=== PATIENT | female | born 1970 | race Caucasian/White ===

== ENCOUNTER 2021-11-29 09:36 | Observation (INO) | payer BC, SELFPAY ==
--- NOTE | ~2021-11-29 | CT_ITS ---
EXAMINATION: CT abdomen pelvis w con DATE: 11/29/2021 11:21 INDICATION: Left flank pain. History of renal stones. TECHNIQUE: Computed tomography (CT) of the abdomen and pelvis was performed without intravenous contr ast. The dose-length product was 371.66 mGy-cm. COMPARISON: CT dated 04/24/2015 FINDINGS: Lung bases are unremarkable. Heart size normal. No significant pleural or pericardial effus ion. There is left perinephric edema with delayed enhancement of the left kidney and mild left hydrou reteronephrosis. There is a 2-3 mm obstructing distal left ureteral stone near the UVJ. There is mild nonspecific periportal edema. The spleen, pancreas, adrenal glands and right kidney are unremarkable. Normal appendix. Nonobstructive bowel gas pattern. There is an IUD present. There is a n involuting corpus luteal cyst of the right ovary measuring 1.9 cm. No lymphadenopathy. No significa nt vascular abnormality. IMPRESSION: 1. Distal right ureteral stone near the UVJ measuring 2-3 mm with associated left hydroureteronephros is, perinephric edema and delayed enhancement of the left kidney. 2: Nonspecific periportal edema. Considerations include hypervolemia, passive hepatic congestion, hep atitis and cholangitis. Reviewed, dictated and finalized at location A. DE PLANT SUPERVISOR IMPRESSION: 1. Distal right ureteral stone near the UVJ measuring 2-3 mm with associated le ft hydroureteronephrosis, perinephric edema and delayed enhancement of the left kidney. 2: Nonspecific periportal edema. Considerations include hypervolemia, passive h epatic congestion, hepatitis and cholangitis.
--- NOTE | ~2021-11-29 | XR_ITS ---
EXAMINATION: XR abdomen/kub 1V DATE: 11/30/2021 06:54 INDICATION: Left ureteral stone TECHNIQUE: A supine view of the abdomen on 2 radiographs was obtained. COMPARISON: CT dated 11/29/2021 FINDINGS: The distal left ureteral stone evident on prior CT is not identified on the current radiographs. Prio r intravenous contrast in the kidneys, renal collecting systems and bladder has resolved. There is a 2 mm density projecting between the right transverse processes of L4 and L5 which is without correlat e on the prior CT with no right-sided urolithiasis or evidence phleboliths suggesting this represents material within the alimentary tract. No dilated bowel to suggest obstruction. IUD in expected posit ion projecting over the central pelvis. IMPRESSION: 1. No evident urolithiasis. Unclear whether this is due to the small size of the stone or due to inte rval passage. 2. IUD in expected position. Reviewed, dictated and finalized at location A. Y RELEASE AND DUPE PRINTER IMPRESSION: 1. No evident urolithiasis. Unclear whether this is due to the small size of th e stone or due to interval passage. 2. IUD in expected position.
--- NOTE | ~2021-11-29 | XR_ITS ---
EXAMINATION: XR abdomen/kub 1V INDICATION: Left flank pain TECHNIQUE: Supine view of the abdomen is obtained. COMPARISON: CT from today FINDINGS: The known left distal ureteral stone is not definitely identified. There is mild left hydro ureteronephrosis which continues to the distal ureter in the expected location of the stone. The micaela l gas pattern is normal. An IUD is noted. IMPRESSION: 1. Mild left hydroureteronephrosis continuing to the left distal ureter to the site of the known ston e identified on CT although stone is not definitely identified. Reviewed, dictated and finalized at location F. RIOR DESIGN TEACHER IMPRESSION: 1. Mild left hydroureteronephrosis continuing to the left distal ureter to the site of the known stone identified on CT although stone is not definitely ident ified.
[2021-11-29 09:38] VITALS: BP 145/87; PULSE 83; RESP 20; TEMP 36.6; O2SAT 100
--- NOTE | 2021-11-29 09:41 | ED.ABDPAIN ---
HPI - Abdominal Pain General Chief Complaint: Abdominal Pain Stated Complaint: kidney stone? Time Seen by Provider: 11/29/21 09:41 Source: patient Mode of arrival: ambulatory Limitations: no limitations History of Present Illness HPI narrative: Patient is a 51-year-old female with a history of nephrolithiasis presenting for evaluation of left flank pain. Patient states that the pain began approximately 4:30 AM this morning, described as sharp, aching pain in the left flank with radiation to the left lower quadrant. No associated fever, chills, but does report dysuria. Denies hematuria. She does report nausea without vomiting. Denies diarrhea. Denies any upper abdominal pain or chest pain. Patient states she has an intermittent history of kidney stones, typically seeks treatment in the emergency department. Patient is unsure who she is followed with from a urology standpoint. She denies any shortness of breath. No cough or rhinorrhea Related Data Home Medications Medication Instructions Recorded Confirmed No Home Medications 11/29/21 11/29/21 Allergies Allergy/AdvReac Type Severity Reaction Status Date / Time house dust Allergy Unknown Unknown Verified 11/29/21 10:03 latex Allergy Unknown Itching Verified 11/29/21 10:03 morphine AdvReac Severe vomiting Verified 11/29/21 10:03 ENVIRONMENTAL ALLERGENS Allergy Severe Unknown Uncoded 11/29/21 10:03 Review of Systems Review of Systems: CONSTITUTIONAL: Denies fever, chills, or sweats. ENT: Denies rhinorrhea, congestion, sore throat, or otalgia. CARDIOVASCULAR: Denies chest pain RESPIRATORY: Denies cough or dyspnea. GASTROINTESTINAL: Reports left lower quadrant abdominal pain, nausea without vomiting, reports left flank pain GENITOURINARY: Reports dysuria without hematuria. SKIN: Denies rash or itching. MUSCULOSKELETAL: Reports left flank pain without arthralgias or other joint pain NEUROLOGIC: Denies headache, numbness, or weakness. [facility] Family History Family History (Updated 07/18/14 @ 07:13 by DOCTOR UNKNOWN) Grandparent Family history of lung cancer Social History Social History (Updated 11/29/21 @ 09:56 by Jenn Belle MD) Smoking status: Current every day smoker Tobacco type: cigarettes Alcohol intake: never Substance use: never Gender identity (if verbalized by the patient): Female Exam Narrative: GENERAL: Awake, alert, uncomfortable appearing, acutely distressed, pacing on the side of the bed HEAD: Normocephalic, atraumatic. EYES: PERRLA and EOMI. ENT: Nares clear, no rhinorrhea or epistaxis. Mucous membranes moist. NECK: Supple. CHEST: No respiratory distress, breathing even and non labored HEART: Regular rate, sinus rhythm ABDOMEN:Non distended, tender in the left lower quadrant, left flank, positive guarding, no rebound EXTREMITIES: Normal range of motion. No edema. SKIN: Warm, dry, no rash. NEURO:No focal deficits. Alert and oriented x3 Course Vital Signs Vital signs: Vital Signs Temperature 36.6 C 11/29/21 09:38 Pulse Rate 83 11/29/21 09:38 Respiratory Rate 20 11/29/21 09:38 Blood Pressure 145/87 H 11/29/21 09:38 Pulse Oximetry 100 11/29/21 09:38 Temperature 36.6 C 11/29/21 09:38 Pulse Rate 52 L 11/29/21 14:12 Respiratory Rate 14 11/29/21 14:12 Blood Pressure 127/75 11/29/21 14:12 Pulse Oximetry 100 11/29/21 14:12 MDM - Abdominal Pain MDM Narrative Medical decision making narrative: Patient presenting for evaluation left flank pain. At the time of assessment, patient is acutely distressed, reporting severe left flank pain. She is uncomfortable appearing. Patient has left flank pain and left lower quadrant pain on exam. Patient was given IV fluids, antiemetic, 3 doses of pain medication without much improvement in her pain. CT scan was obtained and notable for left UVJ stone approximately 2 to 3 mm in size. Urinalysis is not overtly concerning for urinary tract infection, but gi
[2021-11-29] MEDS: SODIUM CHLORIDE 0.9% IV 1,000 ML 999 ML IV CONT (09:56)
[2021-11-29] MEDS: ONDANSETRON INJ 4 MG/2 ML VIAL IV PUSH (09:56)
[2021-11-29 09:57] LABS: Basophils Percent Auto 0.3 % (0.2-1.2); Eosinophils Absolute Auto 0.1 K/mm3 (0-0.3); Eosinophils Percent Auto 0.7 % (0-4.4); Hematocrit 40.3 % (37.0-47.0); Hemoglobin 13.5 g/dL (12.0-15.0); Immature Granulocyte Absolute 0.01 K/mm3 (0.00-0.031); Immature Granulocyte Percent A 0.1 % (0-0.5); Lymphocytes Absolute Auto 0.67 K/mm3 (0.9-3.2); Lymphocytes Percent Auto 9.5 % (18.3-44.2); Mean Corpuscular HGB Conc 33.5 g/dl (32-36); Mean Corpuscular Hemoglobin 31.5 pg (26-34); Mean Corpuscular Volume 94.2 fl (80-100); Mean Platelet Volume 10.5 fl (7.4-10.4); Monocytes Absolute Auto 0.8 K/mm3 (0.1-0.6); Monocytes Percent Auto 11.7 % (2.6-8.5); Neutrophils Absolute Auto 5.5 K/mm3 (1.3-6.7); Neutrophils Percent Auto 77.7 % (45.5-73.1); Platelet Count Result 203 k/mm3 (150-375); Red Blood Count 4.28 M/mm3 (4.2-5.4); Red Cell Distribution Width 13.4 % (11.5-14.5)
[2021-11-29] MEDS: HYDROmorphone HCL INJ (*CRX) 1 MG/ML SYR 0.5 MG IV PUSH (09:57)
[2021-11-29 10:07] LABS: Add Urine Microscopic? YES; Appearance Urine Cloudy (Clear); Bacteria Urine Trace /hpf; Bilirubin Urine Negative (Negative); Blood Urine 2+ (Negative); Color Urine Yellow (Yellow); Glucose Urine UA Negative (Negative); Ketones Urine Negative (Negative); Leukocyte Esterase Ur Negative LEU/UL (Negative); Mucus Urine Rare /lpf; Nitrate Urine Negative (Negative); Protein Urine Negative (Negative); RBC Urine 21-50 /hpf (0-2); Squamous Epithelial Cell Urine Many /hpf (Few)
[2021-11-29 10:20] LABS: Specific Grav Ur 1.032 (1.001-1.035)
[2021-11-29] MEDS: HYDROmorphone HCL INJ (*CRX) 1 MG/ML SYR IV PUSH ×2 (10:41→15:29)
[2021-11-29 10:54] LABS: Alanine Aminotransferase 15 U/L (4-35); Albumin Level 3.7 g/dL (3.5-5.1); Alkaline Phosphatase 46 U/L (38-126); Anion Gap 7 mmol/L (8-16); Aspartate Amino Transferase 22 U/L (14-36); Bilirubin,Total 0.5 mg/dL (0.2-1.3); Blood Urea Nitrogen 16 mg/dL (7-17); Calcium 8.8 mg/dL (8.4-10.2); Carbon Dioxide 24 mmol/L (22-30); Chloride 106 mmol/L (98-107); Estimated CRCL calculation 65 ml/min; Estimated Glomerular Filt Rate > 60; Glucose 100 mg/dL (65-110); Lipase 35 U/L (23-300); Potassium 4.3 mmol/L (3.4-5.0); Sodium 137 mmol/L (137-145)
--- NOTE | 2021-11-29 12:55 | WPDURCON ---
Assessment and Plan Assessment and plan (1) Left ureteral stone: Code(s): N20.1 - Calculus of ureter Status: Acute (2) Hydronephrosis concurrent with and due to calculi of kidney and ureter: Code(s): N13.2 - Hydronephrosis with renal and ureteral calculous obstruction Status: Acute Assessment and Plan: 51 yo female with 2-3 mm left UVJ stone with mild hydro and perinephric stranding. Is requiring IV pain medication. ER MD is starting toradol now. Will admit for pain control and IVF. Will start flomax and strain all urine. ER MD has sent urine culture due to dysuria (though UA looked negative for infection) and started abx. She will be NPO after MN and will get covid swab. If pain persists, we discussed proceeding with cystoscopy, left ureteroscopy with stone extraction and left stent pain tomorrow. I have notified the dye house hand. Urology Consult Note HPI Date Seen: 11/29/21 Primary Care Provider: Cassandra Qureshi, LABOR RELATIONS OFFICER Consult Narrative Narrative: Marie Flores is a 51 year old female being seen at the request of Dr. Belle for left ureteral stone. Pt presented to ER today with sudden onset of left lower back pain radiating to left lower quadrant. Had associated nausea and vomiting. No fevers, chills, or hematuria. Notes some dysuria. Has history of stones, all of which have passed spontaneously. CT in ER showed 2-3 mm L UVJ stone with mild left hydro and perinephric stranding. Nl wbc ct and normal Cr. Pain has persisted despite dilaudid. Review of Systems Review of Systems: All systems reviewed & are unremarkable except as noted in HPI and below (all systems neg other than as her HPI) [facility] Family History Family History (Updated 07/18/14 @ 07:13 by DOCTOR UNKNOWN) Grandparent Family history of lung cancer Social History Social History (Updated 11/29/21 @ 09:56 by Jenn Belle MD) Smoking status: Current every day smoker Tobacco type: cigarettes Alcohol intake: never Substance use: never Gender identity (if verbalized by the patient): Female Meds Home Medications and Allergies Home Medications Medication Instructions Recorded Confirmed Type No Home Medications 11/29/21 11/29/21 History Allergies Allergy/AdvReac Type Severity Reaction Status Date / Time house dust Allergy Unknown Unknown Verified 11/29/21 10:03 latex Allergy Unknown Itching Verified 11/29/21 10:03 morphine AdvReac Severe vomiting Verified 11/29/21 10:03 ENVIRONMENTAL ALLERGENS Allergy Severe Unknown Uncoded 11/29/21 10:03 Vital Signs Vital Signs - 24 hr 11/29/21 09:38 Temperature 36.6 C Pulse Rate 83 Respiratory Rate 20 Blood Pressure 145/87 H Pulse Oximetry 100 Exam Const: General: cooperative and healthy appearing HENMT: Head: normal to inspection Ears: hearing grossly normal bilaterally General nose exam: Normal external nose present Eyes: General: appearance normal, both eyes and all related structures EOM: EOMs intact bilaterally Neck: Neck: normal visual inspection Chest: Chest palpation & inspection: normal inspection of the chest Resp: Effort & Inspection: normal respiratory effort Cardio: Jugular venous distension: no JVD GI: GI Palp: Yes abdominal tenderness (mild LLQ tenderness) and Yes Soft to palpation : General: Yes no CVA tenderness Neuro: General: patient oriented x3 and gait normal Extrem: General: normal to inspection Results Labs CBC & Chem 7: 11/29/21 09:50 11/29/21 10:19 Labs: Short CBC 11/29/21 Range/Units 09:50 WBC 7.0 (4.5-10.0) K/mm3 Hgb 13.5 (12.0-15.0) g/dL Hct 40.3 (37.0-47.0) % Plt Count 203 (150-375) k/mm3 BMP 11/29/21 10:19 Sodium 137 Potassium 4.3 Chloride 106 Carbon Dioxide 24 BUN 16 Creatinine 0.90 Glucose 100 Calcium 8.8 Liver Function 11/29/21 Range/Units 10:19 Total Bilirubin 0.5 (0.2-1.3) mg/dL AST
[2021-11-29] MEDS: METOCLOPRAMIDE HCL INJ 10 MG/2 ML VIAL IV PUSH (13:06)
[2021-11-29] MEDS: KETOROLAC 15 MG/ML VIAL (*BKC) IV PUSH (13:07)
[2021-11-29] MEDS: TAMSULOSIN HCL 0.4 MG CAPSULE PO (13:38)
[2021-11-29 13:57] LABS: SARS-CoV-2 RNA PCR Negative
[2021-11-29 14:12] VITALS: BP 127/75; PULSE 52; RESP 14; O2SAT 100
[2021-11-29] MEDS: SODIUM CHLORIDE 0.9% IV 1,000 ML 125 ML IV CONT ×2 (14:55→20:41)
--- NOTE | 2021-11-29 15:00 | PM.IMHP ---
H&P: HPI History of Present Illness Date/Time: 11/29/21 15:00 Chief Complaint: Left flank pain. Narrative: This is a 51-year-old female with history of kidney stones presented to the emergency department earlier today for evaluation of left flank pain. She was wakened from sleep at about 04:30 with sharp and aching pain in the left flank radiating to the left lower quadrant with the addition to nausea, vomiting, and dysuria. Initially she thought perhaps she was constipated so she took a Dulcolax but she also drank quite a bit of cranberry juice thinking that maybe she was developing a UTI. Unfortunately her symptoms did not improve and because they are similar to those she experienced with previous kidney stones, she decided to come in for evaluation. A CT of the abdomen and pelvis showed a distal right ureteral stone near the UVJ measuring 2-3 mm with left hydroureteronephrosis and she is being admitted in this setting for pain control overnight and urology consultation. At the time my evaluation she is comfortable after receiving pain medication. She denies fever and she has no further episodes of emesis. Review of Systems Review of Systems: Twelve systems were reviewed. No recent cold or flu symptoms. No cough or shortness of breath. No hematuria. Except as documented, all other systems were reviewed and are negative. [facility] Past Medical History Medical History Nephrolithiasis Tobacco use Surgical History Surgical History (Updated 11/29/21 @ 15:25 by Jennifer Pineda PA-C) History of right breast biopsy (02/2011) For microcalcifications. Pathology benign. Family History Family History Grandparent Family history of lung cancer Social History Social History (Updated 11/29/21 @ 23:09 by Jennifer Pineda PA-C) Social History: Surrogate decision maker: Augustina Sandovalhernando, mother. Code status: Full code. Smoking status: Current some day smoker Tobacco type: cigarettes Alcohol intake: never Substance use: current Substance use type: marijuana Last use: 11/21/21 Additional living arrangements comments: Lives in [place]. Additional occupation/education comments: Works for [employer]. Meds Home Medications and Allergies Home Medications Medication Instructions Recorded Confirmed Type No Home Medications 11/29/21 11/29/21 History Allergies Allergy/AdvReac Type Severity Reaction Status Date / Time house dust Allergy Unknown Unknown Verified 11/29/21 10:03 latex Allergy Unknown Itching Verified 11/29/21 10:03 morphine AdvReac Severe vomiting Verified 11/29/21 10:03 ENVIRONMENTAL ALLERGENS Allergy Severe Unknown Uncoded 11/29/21 10:03 Vital Signs Vital Signs - 24 hr 11/29/21 09:38 11/29/21 14:12 Temperature 97.9 F Pulse Rate 83 52 L Respiratory Rate 20 14 Blood Pressure 145/87 H 127/75 Pulse Oximetry 100 100 Exam Narrative: General: Well-developed female supine in bed. Weight: 70.3 kg. BMI: 27.9. HEENT: PERRL, EOMI. Sclerae anicteric. Oral mucosa moist. Neck: Supple. Respiratory: Lungs are clear to auscultation bilaterally. Cardiovascular: Regular rate and rhythm with S1-S2. No murmur, rub, or gallop. Gastrointestinal: Abdomen is soft and nondistended with positive bowel sounds. She is tender to palpation in the left flank and left lower quadrant. No guarding or rebound tenderness. Skin: Warm and dry. No rash or lesions on limited exam. Extremities: No cyanosis, clubbing, or edema. Radial and pedal pulses intact. Neurological: Alert. Cranial nerves 2-12 are grossly intact. No gross focal deficits to casual conversation. Psychiatric: Pleasant and cooperative with normal mood and affect. Judgment and insight intact. H&P: Results Labs Labs: Short CBC 11/29/21 Range/Units 09:50 WBC 7.0 (4.5-10.0) K/mm3 Hgb 13.5 (12.0-15.0) g/dL Hct 40.3 (37.0-47.0) % Plt Count 203
[2021-11-29 15:15] VITALS: BP 137/81; PULSE 50; RESP 18; TEMP 36.2; O2SAT 99; BMI 27.8
--- NOTE | 2021-11-29 15:46 | ADMGEN ---
This patient, Marie Flores, was admitted to Medical Room 257-01. Patient/family oriented to hospital policies and general routines including ID bracelet, bed and alarms, visiting hours, pain management, procedures, bathroom and other care routines, personal items, smoking policy, room service/diet, and visiting hours. Information on how to activate the Rapid Response Team has been discussed. Patient/Family are encouraged to report perceived risks to care and to ask questions if they do not understand what they are told or what they should do.
[2021-11-29] MEDS: FAMOTIDINE 20 MG/2 ML VIAL IV PUSH (20:41)
[2021-11-29 22:00] VITALS: BP 104/58; PULSE 55; RESP 21; TEMP 36.1; O2SAT 100
[2021-11-30] MEDS: SODIUM CHLORIDE 0.9% IV 1,000 ML 125 ML IV CONT (00:58)
[2021-11-30 06:00] VITALS: BP 112/56; PULSE 51; RESP 20; TEMP 36.1; O2SAT 99
[2021-11-30 06:04] LABS: Basophils Percent Auto 0.2 % (0.2-1.2); Eosinophils Absolute Auto 0.1 K/mm3 (0-0.3); Eosinophils Percent Auto 1.4 % (0-4.4); Hematocrit 34.9 % (37.0-47.0); Hemoglobin 11.5 g/dL (12.0-15.0); Immature Granulocyte Absolute 0.02 K/mm3 (0.00-0.031); Immature Granulocyte Percent A 0.4 % (0-0.5); Lymphocytes Absolute Auto 1.34 K/mm3 (0.9-3.2); Lymphocytes Percent Auto 26.2 % (18.3-44.2); Mean Corpuscular Hemoglobin 31.1 pg (26-34); Mean Corpuscular Volume 94.3 fl (80-100); Mean Platelet Volume 10.8 fl (7.4-10.4); Monocytes Absolute Auto 0.7 K/mm3 (0.1-0.6); Monocytes Percent Auto 13.3 % (2.6-8.5); Neutrophils Percent Auto 58.5 % (45.5-73.1); Platelet Count Result 136 k/mm3 (150-375); Red Cell Distribution Width 13.3 % (11.5-14.5); White Blood Count 5.1 K/mm3 (4.5-10.0)
[2021-11-30 06:19] LABS: Alanine Aminotransferase 18 U/L (4-35); Albumin Level 3.1 g/dL (3.5-5.1); Alkaline Phosphatase 41 U/L (38-126); Anion Gap 4 mmol/L (8-16); Aspartate Amino Transferase 28 U/L (14-36); Bilirubin,Total 0.3 mg/dL (0.2-1.3); Blood Urea Nitrogen 14 mg/dL (7-17); Calcium 8.1 mg/dL (8.4-10.2); Carbon Dioxide 23 mmol/L (22-30); Chloride 112 mmol/L (98-107); Estimated CRCL calculation 78 ml/min; Estimated Glomerular Filt Rate > 60; Glucose 101 mg/dL (65-110); Magnesium 1.8 mg/dL (1.6-2.3); Potassium 4.2 mmol/L (3.4-5.0); Sodium 139 mmol/L (137-145)
--- NOTE | 2021-11-30 06:35 | WPDUROPN2 ---
Progress Note: A&P Assessment and Plan (1) Left ureteral stone: Code(s): N20.1 - Calculus of ureter Status: Acute (2) Hydronephrosis concurrent with and due to calculi of kidney and ureter: Code(s): N13.2 - Hydronephrosis with renal and ureteral calculous obstruction Status: Acute Assessment and Plan: 51 yo female with 2-3 mm left UVJ stone with mild hydro and perinephric stranding. Is requiring IV pain medication. ER MD is starting toradol now. Will admit for pain control and IVF. Will start flomax and strain all urine. ER MD has sent urine culture due to dysuria (though UA looked negative for infection) and started abx. She will be NPO after MN and will get covid swab. If pain persists, we discussed proceeding with cystoscopy, left ureteroscopy with stone extraction and left stent pain tomorrow. I have notified the fraternity house cook. 11/30/21 Pain-free overnight. Will check KUB and make decision about need for intervention. Subjective Subjective Date/Time Seen: 11/30/21 06:35 Comfortable, no stone overnight Review of Systems Cardiovascular: Cardiovascular: Denies chest pain, Denies lightheadedness, Denies palpitations and Denies dyspnea Respiratory: Respiratory: Denies dyspnea Gastrointestinal: Gastrointestinal: Denies diarrhea, Denies nausea and Denies vomiting Genitourinary: Genitourinary: Denies hematuria and Denies dysuria Endocrine: Endocrine: Denies palpitations Exam Const: General: no acute distress Resp: Effort & Inspection: normal respiratory effort GI: Inspection: non-distended GI Palp: No abdominal tenderness and No Guarding due to palpation present (GI) Auscultation: normal bowel sounds Objective Data Vital Signs Vital Signs: Vital Signs - 24 hr 11/29/21 09:38 11/29/21 14:12 11/29/21 15:15 Temperature 97.9 F 97.2 F L Pulse Rate 83 52 L 50 L Respiratory Rate 20 14 18 Blood Pressure 145/87 H 127/75 137/81 Pulse Oximetry 100 100 99 11/29/21 22:00 11/30/21 06:00 Temperature 97.0 F L 97.0 F L Pulse Rate 55 L 51 L Respiratory Rate 21 H 20 Blood Pressure 104/58 L 112/56 L Pulse Oximetry 100 99 Intake/Output Intake/Output: Intake & Output 11/27/21 11/28/21 11/29/21 11/30/21 23:59 23:59 23:59 23:59 Intake Total 2150 1000 Output Total 50 900 Balance 2100 100 Meds/Results Medications: Active Medications Generic Name Dose Route Start Last Admin Trade Name Freq PRN Reason Stop Dose Admin Famotidine 20 mg 11/29/21 21:00 11/29/21 20:41 Famotidine 20 Mg/2 Ml Vial IV PUSH 20 mg Q12HR TONYA Administration Hydromorphone HCl 1 mg 11/29/21 13:26 11/29/21 15:29 Hydromorphone Hcl Inj (*Crx) 1 Mg/Ml Syr IV PUSH 1 mg Q4H PRN Administration Pain Rated 7-10 Acetaminophen 1,000 mg in 100 mls @ 400 mls/hr 11/29/21 13:26 Ofirmev 1,000 Mg Ivpb IVPB 11/30/21 13:25 Q6H PRN Mild Pain (1-3) or Fever Sodium Chloride 1,000 mls @ 125 mls/hr 11/29/21 13:30 11/30/21 00:58 Normal Saline Iv IV CONT 125 mls/hr .Q8H TONYA Administration Ceftriaxone Sodium/Dextrose 1 gm in 50 mls @ 100 mls/hr 11/30/21 12:00 Rocephin 1 Gm/D5w 50 Ml IVPB Q24H TONYA Ketorolac Tromethamine 30 mg 11/29/21 13:26 Ketorolac 30 Mg/Ml Vial (*Bkc) IV PUSH 12/04/21 13:25 Q6H PRN Pain Rated 4-6 Ondansetron HCl 4 mg 11/29/21 13:26 Ondansetron Inj 4 Mg/2 Ml Vial IV PUSH Q4H PRN Nausea Tamsulosin HCl 0.4 mg 11/30/21 09:00 Tamsulosin Hcl 0.4 Mg Capsule [facility] [place] [facility] Results: ITS Impressions Abdomen/Pelvis CT 11/29/21 11:24 IMPRESSION: 1. Distal right ureteral stone near the UVJ measuring 2-3 mm with associated left hydroureteronephrosis, perinephric edema and delayed enhancement of the left kidney. 2: Nonspecific periportal edema. Considerations include hypervolemia, passive hepatic congestion, hepatitis and cholangitis. Abdomen X-Ray 11/29/21 15:08 IMPRESSION:
[2021-11-30] MEDS: TAMSULOSIN HCL 0.4 MG CAPSULE PO (08:27)
--- NOTE | 2021-11-30 12:29 | PM.DS ---
DS: Admitting Diagnosis Discharge Date 11/30/2021 Admitting Diagnosis Left ureteral stone DS: Discharge Diagnosis Discharge Diagnosis (1) Left ureteral stone: Code(s): N20.1 - Calculus of ureter Status: Acute Assessment and Plan: IV pain control IVF Flomax and strain all urine. UA not suggestive for infecition IV antibiotics Pain resolved No plan to proceed with cystoscopy D/c home (2) Hydronephrosis concurrent with and due to calculi of kidney and ureter: Code(s): N13.2 - Hydronephrosis with renal and ureteral calculous obstruction Status: Acute Assessment and Plan: Plan as above (3) Abnormal finding on CT scan: Code(s): R93.89 - Abnormal findings on diagnostic imaging of other specified body structures Status: Acute Assessment and Plan: Plan as above (4) Tobacco use: Code(s): Z72.0 - Tobacco use Status: Acute Assessment and Plan: Cessation advised DS: Summary Hospital Course Hospital Course: Marie Flores presents today with acute onset of left flank pain this morning, found to have a left ureteral stone with hydronephrosis. She is being admitted overnight for pain control and Dr. Manning (relative) has seen the patient in consultation. She has been started on Flomax in all urine will be strained. Hopefully she will pass this tonight however if she does not I believe there are plans for cystoscopy and stent placement tomorrow. Continue ceftriaxone, pending urine culture. CT of the abdomen and pelvis also showed findings of mild periportal edema which according to the radiologist is nonspecific with considerations to include hypervolemia, passive hepatic congestion, hepatitis and cholangitis. She does not give a history consistent for any of these. Patient tells me that she smokes only when drinking alcohol thus she declines the need for nicotine patch. The patient had no pain overnight and Dr. Frausto has signed off with no plan for intervention. The patient is stable and will discharge home. She has been given instruction to follow up with her PCP and with Dr. Frausto. Time Spent with Patient Time attestation: Total time spent providing and/or coordinating discharge services: Time spent: Greater than 30 minutes Exam Narrative: General: NAD. HEENT: EOMI. Sclerae anicteric. Oral mucosa moist. Neck: Supple. Respiratory: Lungs are clear to auscultation bilaterally. Cardiovascular: Regular rate and rhythm with S1-S2. No murmur, rub, or gallop. Gastrointestinal: Abdomen is soft and nondistended with positive bowel sounds. No guarding or rebound tenderness. Skin: Warm and dry. No rash or lesions on limited exam. Extremities: No cyanosis, clubbing, or edema. Radial and pedal pulses intact. Neurological: Alert. Cranial nerves 2-12 are grossly intact. No gross focal deficits. Psychiatric: Pleasant and cooperative with normal mood and affect. Judgment and insight intact. DS: Data Data Completed and Pending Labs on day of discharge: Labs from last 24 hours 11/30/21 11/30/21 11/29/21 05:53 05:53 13:11 WBC 5.1 RBC 3.70 L Hgb 11.5 L Hct 34.9 L MCV 94.3 MCH 31.1 MCHC 33.0 RDW 13.3 Plt Count 136 L MPV 10.8 H Immature Gran % (Auto) 0.4 Neut % (Auto) 58.5 Lymph % (Auto) 26.2 [place] % (Auto) 13.3 H Eos % (Auto) 1.4 Baso % (Auto) 0.2 Lymph # (Auto) 1.34 [place] # (Auto) 0.7 H Eos # (Auto) 0.1 Baso # (Auto) 0.0 Abs Immat Gran (auto) 0.02 Absolute Neuts (auto) 3.0 Absolute Nucleated RBC 0.0 Nucleated RBC % 0.0 Sodium 139 Potassium 4.2 Chloride 112 H Carbon Dioxide 23 Anion Gap 4 L BUN 14 Creatinine 0.80 Estim Creat Clear Calc 78 Estimated GFR > 60 Glucose 101 Calcium 8.1 L Magnesium 1.8 Total Bilirubin 0.3 AST 28 ALT 18 Alkaline Phosphatase 41 Total Protein 5.0 L Albumin 3.1 L SARS-CoV-2 RNA (RT
--- NOTE | 2021-12-01 07:08 | WPDANESPN ---
Anes - Prog Note Post-Op Date/Time: 12/01/21 07:08 Cardiovascular status: normal Respiratory status: normal Airway patency: baseline Mental status: baseline Post-Op hydration status: normal Vital Signs: Last Vital Signs Temp 97.0 F L 11/30/21 06:00 Pulse 51 L 11/30/21 06:00 Resp 20 11/30/21 06:00 BP 112/56 L 11/30/21 06:00 Pulse Ox 99 11/30/21 06:00 Pain Score (VAS): 0 Laboratory Tests 11/30/21 05:53 11/30/21 05:53 Microbiology 11/29/21 09:51 Urine Clean Catch Urine Culture - Final Post-procedural complaints: none Patient Feedback: Patient satisfied with anesthetic care.
== END 2021-11-30 12:50 | disposition home or self-care (01) ==
LOC: ANHED 14:43 → ANH2MED 11-30 06:29
PROVIDERS: Admitting Provider Family Medicine; Emergency Provider Emergency Medicine; PCP Nurse Practitioner Adult Health; Visit Provider Nurse Practitioner Adult Health
DX: N13.2 Hydronephrosis with renal and ureteral calculous obstruction (principal); R93.422 Abnormal radiologic findings on diagnostic imaging of left kidney; F17.210 Nicotine dependence, cigarettes, uncomplicated; F12.90 Cannabis use, unspecified, uncomplicated; Z20.822 Contact with and (suspected) exposure to COVID-19
CPT/HCPCS: 36415; 74018; 74177; 80053; 81001; 81025; 83690; 83735; 85025; 87086; 96361; 96365; 96375; 96376; 99285; A9270; C9803; G0378; J0131; J0696; J1170; J1885; J2405; J2765; J7030; Q9967; U0003; U0005

== ENCOUNTER 2021-12-04 08:17 | Emergency (ER) | payer BC, SELFPAY ==
--- NOTE | ~2021-12-04 | CT_ITS ---
EXAMINATION: CT abdomen pelvis wo con DATE: 12/04/2021 08:52 INDICATION: Nephrolithiasis presenting with left flank pain. TECHNIQUE: Computed tomography (CT) of the abdomen and pelvis was performed without intravenous contr ast. Automated exposure control and iterative reconstruction technique were employed. The dose-length product was 219.30 mGy-cm. COMPARISON: 11/29/2021 FINDINGS: Mild discoid atelectasis in the lingula and right middle lobe. Heart size is normal. No pericardial o r pleural effusion. Liver, spleen, pancreas and bilateral adrenal glands are normal. There is small a mount of pericholecystic fluid versus edematous wall thickening of the decompressed gallbladder. 2 mm obstructing stone at the left ureterovesicular junction with mild left hydroureteronephrosis. Right kidney and ureter are normal with no right-sided urolithiasis. Bowels including the appendix are norm al. Bladder is decompressed. T-shaped IUD in expected position within the anteverted uterus. Trace am ount of likely physiologic free fluid in the cul-de-sac. No pathologically enlarged abdominal or pelv ic lymphadenopathy. Mild scattered degenerative skeletal changes in the spine and pelvis. IMPRESSION: 1. Obstructing 2 mm stone at the left ureterovesicular junction with mild left hydroureteronephrosis. 2. Small amount of pericholecystic fluid versus edematous wall thickening of the decompressed gallbla dder. The decompressed state would argue against acute cholecystitis and this could be related to chr onic cholecystitis or other edema forming states. 3. IUD in expected position within the anteverted uterus. Reviewed, dictated and finalized at location A. CLEANER OPERATOR IMPRESSION: 1. Obstructing 2 mm stone at the left ureterovesicular junction with mild left hydroureteronephrosis. 2. Small amount of pericholecystic fluid versus edematous wall thickening of th e decompressed gallbladder. The decompressed state would argue against acute ch olecystitis and this could be related to chronic cholecystitis or other edema f orming states. 3. IUD in expected position within the anteverted uterus.
[2021-12-04 08:20] VITALS: BP 149/97; PULSE 80; RESP 16; TEMP 36.5; O2SAT 99
--- NOTE | 2021-12-04 08:35 | ED.ABDPAIN ---
HPI - Abdominal Pain General Chief Complaint: Urogenital-Female Stated Complaint: Possible Kidney Stones Time Seen by Provider: 12/04/21 08:20 Source: patient Mode of arrival: ambulatory Limitations: no limitations History of Present Illness HPI narrative: Patient is a 51-year-old female complaining of left flank pain, 9 out of 10, sharp, rating to left groin, accompanied by nausea started this morning. Patient states that she was seen here 5 days ago for the same complaint was told that she will eventually pass it, had a 2 to 3 mm distal ureteral stone, but this morning the pain is recurred and is worse. Patient denies any chest pain, shortness of breath, abdominal pain, hematuria, fever or chills. Related Data Home Medications Medication Instructions Recorded Confirmed ranitidine HCl mg 12/04/21 Allergies Allergy/AdvReac Type Severity Reaction Status Date / Time house dust Allergy Unknown Unknown Verified 12/04/21 08:24 latex Allergy Unknown Itching Verified 12/04/21 08:24 morphine AdvReac Severe vomiting Verified 12/04/21 08:24 ENVIRONMENTAL ALLERGENS Allergy Severe Unknown Uncoded 11/29/21 10:03 Review of Systems Review of Systems: All systems reviewed & are unremarkable except as noted in HPI and below Constitutional: Constitutional: Denies body ache(s), Denies chills, Denies excessive sweating, Denies fatigue, Denies fever(s), Denies headache(s), Denies lethargy, Denies malaise, Denies weakness and Denies weight loss Eyes: Eyes: Denies blurry vision, Denies change in vision and Denies loss of vision ENT: Denies dizziness, Denies ear discharge, Denies headache(s), Denies lip swelling, Denies epistaxis, Denies nasal congestion, Denies neck pain, Denies throat swelling and Denies tongue swelling Cardiovascular: Cardiovascular: Denies chest pain, Denies chest pain at rest, Denies chest pain with activity, Denies diaphoresis, Denies rapid heart rate, Denies edema, Denies irregular heart rhythm, Denies lightheadedness, Denies palpitations, Denies dyspnea and Denies dyspnea on exertion Respiratory: Respiratory: Denies chest congestion, Denies cough, Denies hemoptysis, Denies dyspnea and Denies dyspnea on exertion Gastrointestinal: Gastrointestinal: Denies abdominal pain, Denies melena, Denies hematochezia, Denies diarrhea, Denies vomiting and Denies hematemesis Musculoskeletal: Musculoskeletal: Denies abnormal gait, Denies deformity, Denies joint swelling, Denies limited range of motion, Denies neck pain and Denies numbness Neurologic: Denies Abnormal speech present, Denies abnormal gait, Denies confusion, Denies dizziness, Denies headache(s), Denies focal weakness, Denies loss of vision, Denies numbness, Denies Other visual disturbances, Denies Sensory deficit (Neuro) and Denies weakness Psychiatric: Psychiatric: Denies confusion, Denies depression, Denies auditory hallucinations, Denies homicidal ideation and Denies suicidal ideation Endocrine: Endocrine: Denies cold intolerance, Denies excessive sweating, Denies fatigue, Denies heat intolerance and Denies palpitations Hematologic/Lymphatic: Hematologic/Lymphatic: Denies easy bleeding and Denies easy bruising Allergic/Immunologic: Allergic/Immunologic: Denies lip swelling, Denies throat swelling and Denies tongue swelling PMFSH Past Medical History Medical History Nephrolithiasis Tobacco use Surgical History Surgical History History of right breast biopsy (02/2011) For microcalcifications. Pathology benign. Family History Family History Grandparent Family history of lung cancer Social History Social History Social History: Surrogate decision maker: Augustina Moncada, mother. Code status: Full code. Smoking status: Current some day smoker Tobacco type: cigarettes Alcohol intake: never
[2021-12-04] MEDS: KETOROLAC 30 MG/ML VIAL (*BKC) IV PUSH (08:42)
[2021-12-04] MEDS: PROMETHAZINE HCL 25 MG/ML AMPUL 12.5 MG IV PUSH (08:42)
[2021-12-04] MEDS: SODIUM CHLORIDE 0.9% IV 1,000 ML 999 ML IV CONT (08:43)
[2021-12-04 08:57] LABS: Basophils Percent Auto 0.2 % (0.2-1.2); Eosinophils Absolute Auto 0.1 K/mm3 (0-0.3); Eosinophils Percent Auto 0.9 % (0-4.4); Hematocrit 41.4 % (37.0-47.0); Immature Granulocyte Absolute 0.01 K/mm3 (0.00-0.031); Immature Granulocyte Percent A 0.2 % (0-0.5); Lymphocytes Percent Auto 26.3 % (18.3-44.2); Mean Corpuscular HGB Conc 33.8 g/dl (32-36); Mean Corpuscular Hemoglobin 30.8 pg (26-34); Mean Corpuscular Volume 91.2 fl (80-100); Mean Platelet Volume 11.1 fl (7.4-10.4); Monocytes Absolute Auto 0.5 K/mm3 (0.1-0.6); Monocytes Percent Auto 8.1 % (2.6-8.5); Neutrophils Absolute Auto 3.7 K/mm3 (1.3-6.7); Neutrophils Percent Auto 64.3 % (45.5-73.1); Platelet Count Result 194 k/mm3 (150-375); Red Blood Count 4.54 M/mm3 (4.2-5.4); Red Cell Distribution Width 13.1 % (11.5-14.5); White Blood Count 5.7 K/mm3 (4.5-10.0)
[2021-12-04 09:17] LABS: Alanine Aminotransferase 21 U/L (4-35); Albumin Level 4.5 g/dL (3.5-5.1); Alkaline Phosphatase 53 U/L (38-126); Anion Gap 7 mmol/L (8-16); Aspartate Amino Transferase 22 U/L (14-36); Bilirubin,Total 0.6 mg/dL (0.2-1.3); Blood Urea Nitrogen 12 mg/dL (7-17); Calcium 9.4 mg/dL (8.4-10.2); Carbon Dioxide 29 mmol/L (22-30); Chloride 106 mmol/L (98-107); Estimated CRCL calculation 79 ml/min; Estimated Glomerular Filt Rate > 60; Glucose 96 mg/dL (65-110); Lipase 31 U/L (23-300); Sodium 142 mmol/L (137-145)
[2021-12-04 09:24] LABS: Add Urine Microscopic? YES; Appearance Urine Cloudy (Clear); Bilirubin Urine Negative (Negative); Blood Urine 1+ (Negative); Color Urine Yellow (Yellow); Glucose Urine UA Negative (Negative); Ketones Urine Negative (Negative); Leukocyte Esterase Ur Negative LEU/UL (Negative); Mucus Urine Rare /lpf; Nitrate Urine Negative (Negative); Protein Urine Negative (Negative); Specific Grav Ur 1.016 (1.001-1.035); Squamous Epithelial Cell Urine Many /hpf (Few); Urobilinogen Urine Negative mg/dL (<2.0)
[2021-12-04] MEDS: TAMSULOSIN HCL 0.4 MG CAPSULE PO (11:08)
[2021-12-04] MEDS: HYDROmorphone HCL INJ (*CRX) 1 MG/ML SYR 0.5 MG IV PUSH (11:09)
--- NOTE | 2021-12-04 11:59 | PC.NURSE ---
pt sleeping on stretcher. no distress noted.
[2021-12-04 12:21] VITALS: BP 117/71; PULSE 54; RESP 18; O2SAT 97
== END 2021-12-04 13:12 | disposition home or self-care (01) ==
PROVIDERS: Emergency Provider Emergency Medicine; PCP Nurse Practitioner Adult Health
DX: N13.2 Hydronephrosis with renal and ureteral calculous obstruction (principal); Z87.442 Personal history of urinary calculi; F17.210 Nicotine dependence, cigarettes, uncomplicated; Z97.5 Presence of (intrauterine) contraceptive device
CPT/HCPCS: 36415; 74176; 80053; 81001; 83690; 85025; 96361; 96374; 96375; 99284; A9270; J1170; J1885; J2550; J7030

== ENCOUNTER 2021-12-08 01:20 | Day surgery (SDC) | payer BC, SELFPAY ==
[2021-12-04 15:24] VITALS: BMI 25.8
--- NOTE | 2021-12-04 15:31 | PC.NURSE ---
Report to the Outpatient Waiting Room, entrance under the green pavilion located off [facility], at time 1045 on date 12/08/21. OR Time: 1245. - You will be asked a series of questions to screen for COVID 19 for your protection. - A mask is required within the hospital. - No visitors are allowed at this time. Preoperative COVID Testing Requirements: TO BRING COPY OF CARD No COVID Test needed if: (proof is required; if not received patient will have Rapid Test prior to entry) - Patient has received COVID Vaccine at least 14 days prior to procedure date or - Patient has positive COVID test result within last 90 days of surgery date. COVID Test needed if above criteria is not met Patients may have clear liquids (water, carbonated beverages, clear teas, apple juice) until 3 hours prior to surgery with a maximum of 20 ounces. - No food from midnight until time of surgery Take the following medications with a SIP of water the morning of surgery: PAIN PILL, FLOMAX (IF NEEDED) Medications to discontinue per physician: N/A Date to take last dose: N/A Please no make-up, nail french, hairspray, perfume, deodorant, or body powder the day of surgery. No jewelry (including any body piercings) or valuables the day of surgery, leave them at home. Please take a shower or bath the night before, or the morning of, surgery with an antibacterial soap. Wear comfortable, loose fitting clothing. - Jewelry must be removed prior to entering the operating room. Rings and piercings that are not removed may be cut off. - The hospital will not accept responsibility for valuables. - Please leave all valuables, including medications, at home the day of surgery. If you are going home after surgery, a licensed passenger coach driver must drive you home. - NO public transportation without another adult. - We recommend that an adult stay with you for 24 hours following discharge. - We also recommend that you do not drive, make important decision, drink alcoholic beverages, or take any drugs that were not prescribed by your health care provider for at least 24 hours after your discharge time. Follow any additional instructions given to you from your surgeon. Telephone instructions given to ANGLE LYONS and asked if any additional questions and then verbalized understanding. Patient advised to call surgeon office or pre surgery nurse liaison [phone] if any additional questions.
[2021-12-08] VITALS (9 sets, daily range): BP systolic 101–142; BP diastolic 52–88; PULSE 52–85; RESP 10–17; TEMP 36.5; O2SAT 97–100
--- NOTE | ~2021-12-08 | XR_ITS ---
EXAMINATION: XR retrograde pyelo w/stent LT DATE: 12/08/2021 13:19 INDICATION: Left ureteral stone. TECHNIQUE: 5 intraoperative fluoroscopic views of the abdomen and pelvis were obtained. I was not pre sent. Fluoroscopy exposure time was 9 seconds. COMPARISON: CT abdomen and pelvis 12/08/2021 FINDINGS: There is a left internal ureteral stent in expected position. The left-sided retrograde agapito logram demonstrates mild hydronephrosis. The final images demonstrate a left internal ureteral stent in expected position. IMPRESSION: 1. Left internal ureteral stent in expected position. Reviewed, dictated and finalized at location A. HER ETCHER
--- NOTE | ~2021-12-08 | CT_ITS ---
EXAMINATION: CT abdomen pelvis wo con DATE: 12/08/2021 11:04 INDICATION: Left renal stone TECHNIQUE: Computed tomography (CT) of the abdomen and pelvis was performed without intravenous contr ast. Automated exposure control and iterative reconstruction technique were employed. Exam dose: 193 .24 mGy-cm total exam DLP. COMPARISON: 12/04/2021 CT abdomen pelvis noncontrast examination FINDINGS: Lung bases are clear of infiltrate or consolidation. Normal heart size. No pericardial or p leural effusion. The liver, gallbladder, bile ducts, spleen, pancreas, pancreatic duct, and adrenal glands and right k idney are unremarkable. Persistent 2 mm calculus in the region of the left ureterovesical junction with minimal left hydroure teronephrosis, improved since 12/04/2021. No other urinary tract calculus. IUD within uterus. The normal appendix is subhepatic in position. No bowel obstruction, bowel wall thickening, pneumatos is or intraperitoneal free air. Normal caliber of the abdominal aorta. No abdominal aortic aneurysm. No intraperitoneal or retroperit glaindo or pelvic mass lesion or adenopathy or ascites. IMPRESSION: Persistent small distal left ureteral calculus; diminished minimal left hydronephrosis Reviewed, dictated and finalized at Location A. Reviewed, dictated and finalized at location A. REFINERY OPERATOR
--- NOTE | 2021-12-08 11:46 | WPDHPUPDATE1 ---
History and Physical Update Update Date/Time: 12/08/21 11:46 History and Physical has been reviewed, including an updated exam of the patient. There are NO changes in the patient's condition. Risks, benefits, and alternatives have been discussed and questions answered. Patient agrees to proceed with procedure. Marie was not having any significant pain but had not caught a stone. CT was obtained which now reveals persistence of the left UVJ stone. Will proceed with cystoscopy, left retrograde pyelogram, left ureteroscopy with stone extraction, and possible stent placement
--- NOTE | 2021-12-08 12:01 | SUR.PREOP ---
[address] for abd and pelvis to visualize renal stone.
[2021-12-08] MEDS: LACTATED RINGERS 1,000 ML 30 ML IV CONT ×2 (12:06→14:37)
--- NOTE | 2021-12-08 12:39 | WPDANESEPPF ---
Anes - Initial Pre Proc Eval Procedure: Operation Date: 12/08/21 12:45 Proposed Procedures p Cystoscopy, Left Ureteroscopy, Left Retrograde Pyelogram,Left Stone Extraction, - Robert Lovett MD s Possible Laser Lithotripsy, Possible Left Stent Placement - Robert Lovett MD Date/Time: 12/08/21 12:39 Surgeon: Robert Lovett MD Pre Op Diagnosis: left ureteral stone Patient Data Age: 51 Gender: F Height: 1.68 m Weight: 74.15 kg Last Vital Signs Temp 36.5 C 12/08/21 10:53 Pulse 85 12/08/21 10:53 Resp 16 12/08/21 10:53 BP 131/88 12/08/21 10:53 Pulse Ox 98 12/08/21 10:53 Allergies Allergy/AdvReac Type Severity Reaction Status Date / Time latex Allergy Intermediate Itching Verified 12/08/21 11:25 house dust Allergy Mild Sneezing Verified 12/08/21 11:25 morphine AdvReac Severe vomiting Verified 12/04/21 15:22 ENVIRONMENTAL ALLERGENS Allergy Mild Sneezing Uncoded 12/08/21 11:25 Home Medications Medication Instructions Recorded Confirmed Type hydrocodone-acetaminophen 1 tablet PO Q6H PRN #8 tablet 12/04/21 12/08/21 Rx ranitidine HCl 300 mg PO DAILY 12/04/21 12/08/21 History tamsulosin [Flomax] 0.4 mg PO DAILY #4 cap 12/04/21 12/08/21 Rx Patient hx anesthesia problems: none Family hx anesthesia problems: none Results Review: All pre-operative results and documents have been reviewed as part of the pre-operative evaluation. [facility] Past Medical History Medical History GERD (gastroesophageal reflux disease) Nephrolithiasis EVARISTO (obstructive sleep apnea) no CPAP Tobacco use Surgical History Surgical History History of right breast biopsy (02/2011) For microcalcifications. Pathology benign. Family History Family History Grandparent Family history of lung cancer Social History Social History Social History: Surrogate decision maker: Augustina Moncada, mother. Code status: Full code. Smoking status: Current some day smoker Tobacco type: cigarettes Alcohol intake: current Alcohol use details: 6/MONTH Substance use: current Substance use type: marijuana Last use: 11/21/21 Living arrangements: alone Additional living arrangements comments: Lives in [place]. Additional occupation/education comments: Works for [employer]. Spiritual care concerns: No Anes - Eval Final PreProcedure Day of Procedure 12/08/21 12:39 Patient weight: overweight Heart: regular rate and rhythm Lungs: clear to auscultation and normal air movement Airway: Mallampati scale class II Neurological: alert and oriented Last oral intake: >/= 8 hours ASA classification: II Emergent: no Anesthetic plan: proceed Anesthesia type and monitoring: general LMA and standard monitoring Results Review: All pre-operative results and documents have been reviewed as part of the pre-operative evaluation. Informed Consent: The patient's anesthetic plan and its attendant risks and benefits were discussed with the patient/family/POA. Questions were solicited and answers provided to the satisfaction of the patient/family/POA.
[2021-12-08] MEDS: ceFAZolin 2 GM/D5W 50 ML 2 GM/50 ML BAG IVPB (12:51)
[2021-12-08] MEDS: LIDOCAINE HCL 2% GEL UROJET 10 ML PKG MUCOUS MEM (13:07)
--- NOTE | 2021-12-08 13:18 | P.OP_ITS ---
Procedure Note - Detailed Date of Procedure 12/08/21 Pre-op Diagnosis left ureteral stone Post-op Diagnosis same Procedure Performed Cystoscopy, left retrograde pyelogram, left ureteroscopy with stone extraction, left ureteral stent placement 4.8 Slovenian contour Surgeon Robert Lovett MD Anesthesia general Description of Procedure Patient is taken the operative suite correctly identified. Once anesthesia was obtained she was placed in dorsal lithotomy position and prepped and draped usual sterile fashion. Twenty-two Slovenian scope was inserted the bladder. The left ureteral orifice was cannulated with a guidewire. Rigid ureteral scope was inserted. Stone was visualized, grasped with an escape basket removed entirety. Reinspection revealed no residual stones. Pyelogram was then performed. 4.8 Slovenian contour stent was placed with the proximal end coiled in the renal pelvis and the distal in the bladder. Bladder was drained. 2% viscous lidocaine was then inserted into the bladder. Patient is taken recovery stable condition. She will follow up in a week's time for stent removal. Call for appointment. Drains Yes Packing No Pathology yes Complications No immediate complications Condition stable Disposition PACU
[2021-12-08] MEDS: ONDANSETRON INJ 4 MG/2 ML VIAL IV PUSH (14:12)
[2021-12-08] MEDS: fentaNYL CITRATE INJ (*CRX) 100 MCG/2 ML VIAL 25 MCG IV PUSH ×2 (14:29→15:00)
--- NOTE | 2021-12-08 15:29 | SUR.PHASEII ---
PT AWAKE AND ALERT. STATES PAIN AT 7/10 UNCHANGED TO LOW CENTER ABDOMEN. PT SMILING AND TALKATIVE. STATES SHE IS READY TO GO HOME. PT DOES NOT WANT ANYMORE PAIN MEDICINE.
== END 2021-12-08 15:45 | disposition home or self-care (01) ==
PROVIDERS: PCP Nurse Practitioner Adult Health; Visit Provider Urology
PROC: (CPT 52352; principal; 2021-12-08 12:45)
DX: N13.2 Hydronephrosis with renal and ureteral calculous obstruction (principal); K21.9 Gastro-esophageal reflux disease without esophagitis; G47.33 Obstructive sleep apnea (adult) (pediatric); F17.210 Nicotine dependence, cigarettes, uncomplicated; F12.90 Cannabis use, unspecified, uncomplicated
CPT/HCPCS: 52332; 52352; 74176; 74420; 82365; 88300; A9270; C1758; C1769; C2617; J0690; J1100; J2250; J2405; J2704; J3010; J7120; Q9966

== ENCOUNTER 2023-11-03 08:29 | Observation (INO) | payer BC, SELFPAY ==
--- NOTE | ~2023-11-03 | XR_ITS ---
EXAMINATION: XR abdomen/kub 1V DATE: 11/04/2023 13:23 INDICATION: Right kidney stone. TECHNIQUE: A supine view of the abdomen on 2 radiographs was obtained. COMPARISON: CT abdomen and pelvis 11/03/2023, abdomen radiographs 11/30/2021 FINDINGS: There are no dilated loops of bowel. There is an intrauterine device in expected position. There is no visible urolithiasis. IMPRESSION: 1. No visible urolithiasis. Reviewed, dictated and finalized at location A. ORY CARD CLERK IMPRESSION: 1. No visible urolithiasis.
--- NOTE | ~2023-11-03 | CT_ITS ---
EXAMINATION: CT abdomen pelvis wo con DATE: 11/03/2023 09:40 INDICATION: Flank pain and hematuria TECHNIQUE: Computed tomography (CT) of the abdomen and pelvis was performed without intravenous contr ast. The dose-length product (DLP) was 517.58 mGy-cm. Automated exposure control and iterative recons truction technique were employed. COMPARISON: 12/08/2021 FINDINGS: Minimal dependent atelectasis is present in the lung bases. The heart size is normal. The l iver, spleen, pancreas, gallbladder, and adrenal glands are normal. There is a 10 mm x 4 mm stone in the right renal pelvis. There is mild right hydronephrosis. The left kidney is unremarkable. No patho logically enlarged abdominal or pelvic lymph nodes are identified. An IUD is noted in expected positi on. No free intraperitoneal gas or evidence of bowel obstruction. There is mild thoracic spondylosis. IMPRESSION: 1. 10 mm x 4 mm stone in the right renal pelvis with mild hydronephrosis. Reviewed, dictated and finalized at location L. MATIC TRANSMISSION MECHANIC
[2023-11-03 09:01] VITALS: BP 145/72; PULSE 66; RESP 12; TEMP 36.9; O2SAT 99
--- NOTE | 2023-11-03 09:16 | ED.FEMALEGU ---
HPI - Female Genitourinary General Chief complaint: Urogenital-Female <Sonia Vallejo APRN - Last Filed: 11/03/23 13:49> Stated complaint: Urinating blood <Sonia Vallejo APRN - Last Filed: 11/03/23 13:49> Time Seen by Provider: 11/03/23 09:15 <Sonia Vallejo APRN - Last Filed: 11/03/23 13:49> Source: patient <Sonia Vallejo APRN - Last Filed: 11/03/23 13:49> Mode of arrival: ambulatory <Sonia Vallejo APRN - Last Filed: 11/03/23 13:49> Limitations: no limitations <Sonia Vallejo APRN - Last Filed: 11/03/23 13:49> History of Present Illness HPI Narrative: Patient is a pleasant 53-year-old female who presents emergency department today for evaluation of right-sided flank discomfort as well as blood in her urine. Patient states that it started a few days ago but only a little bit and she thought that maybe it was just her being dehydrated & her urine being dark. She states however today there is a lot more blood. She states she does have a history of kidney stones, but she is not at the level of pain she had when she had those. She denies there being any vaginal bleeding. She does not have menstrual cycles any longer. She denies any fever, chills, chest pain, shortness a breath, nausea, vomiting, diarrhea, constipation, pain to her abdomen, pain with urination, or any other symptoms. <Sonia Vallejo APRN - Last Filed: 11/03/23 13:49> Related Data Home medications: Home Medications Medication Instructions Recorded Confirmed ranitidine HCl 300 mg tablet 300 mg PO DAILY 12/04/21 12/08/21 <Sonia Vallejo APRN - Last Filed: 11/03/23 13:49> Allergies/Adverse reactions: Allergies Allergy/AdvReac Type Severity Reaction Status Date / Time latex Allergy Intermediate Itching Verified 11/03/23 10:22 house dust Allergy Mild Sneezing Verified 11/03/23 10:22 morphine AdvReac Severe vomiting Verified 11/03/23 10:22 ENVIRONMENTAL ALLERGENS Allergy Mild Sneezing Uncoded 11/03/23 10:22 <Sonia Vallejo APRN - Last Filed: 11/03/23 13:49> Review of Systems Review of Systems: CONSTITUTIONAL: Denies fever, chills, or sweats. EYES: Denies visual changes, redness, or discharge. ENT: Denies rhinorrhea, congestion, sore throat, or otalgia. CARDIOVASCULAR: Denies chest pain, palpitations, or edema. RESPIRATORY: Denies cough or dyspnea. GASTROINTESTINAL: Denies abdominal pain, nausea, vomiting, or diarrhea. GENITOURINARY: +hematuria. denies dysuria. +right sided flank pain. SKIN: Denies rash or itching. MUSCULOSKELETAL: Denies back pain, joint pain, or myalgia. NEUROLOGIC: Denies headache, numbness, or weakness. PSYCHIATRIC: Denies anxiety or depression. <Sonia Vallejo APRN - Last Filed: 11/03/23 13:49> All systems reviewed & are unremarkable except as noted in HPI and below <Sonia Vallejo APRN - Last Filed: 11/03/23 13:49> [facility] Past Medical History Medical History: Medical History GERD (gastroesophageal reflux disease) Nephrolithiasis EVARISTO (obstructive sleep apnea) no CPAP Tobacco use <Sonia Vallejo APRN - Last Filed: 11/03/23 13:49> Surgical History Surgical History: Surgical History History of right breast biopsy (02/2011) For microcalcifications. Pathology benign. <Sonia Vallejo APRN - Last Filed: 11/03/23 13:49> Family History Family History: Family History Grandparent Family history of lung cancer <Sonia Vallejo APRN - Last Filed: 11/03/23 13:49> Social History Social History: Social History Social History: Surrogate decision maker: Augustina Carrerabenjiharshil, mother. Code status: Full code. Smoking status: Current some day smoker Alcohol intake: current Alcohol use details: 6/MONTH Substance use: former Substance use type: marijuana Last use: 11/21/21
[2023-11-03 09:42] LABS: Bacteria Urine 1+ /hpf; Non Pathogenic Casts 0-2; RBC Urine >100 /hpf (0-2); Squamous Epithelial Cell Urine Occasional /hpf (Few)
[2023-11-03 09:46] LABS: Appearance Urine Turbid (Clear); Bilirubin Urine 1+ (Negative); Blood Urine 3+ (Negative); Color Urine Red (Yellow); Glucose Urine UA Negative (Negative); Ketones Urine Negative (Negative); Leukocyte Esterase Ur 1+ LEU/UL (Negative); Nitrate Urine Negative (Negative); Protein Urine 1+ mg/dL (Negative); Urobilinogen Urine 0.2 mg/dL (<2.0)
[2023-11-03 09:47] LABS: Add Urine Microscopic? YES
[2023-11-03] MEDS: ONDANSETRON INJ 4 MG/2 ML VIAL IV PUSH (10:33)
[2023-11-03] MEDS: SODIUM CHLORIDE 0.9% IV 1,000 ML 999 ML IV CONT (10:33)
[2023-11-03] MEDS: TAMSULOSIN HCL 0.4 MG CAPSULE PO (10:34)
[2023-11-03] MEDS: KETOROLAC 30 MG/ML VIAL (*BKC) IV PUSH (10:34)
[2023-11-03 11:16] LABS: Basophils Percent Auto 0.3 % (0.2-1.2); Eosinophils Absolute Auto 0.1 K/mm3 (0-0.3); Eosinophils Percent Auto 0.6 % (0-4.4); Hematocrit 38.2 % (37.0-47.0); Hemoglobin 12.3 g/dL (12.0-15.0); Immature Granulocyte Absolute 0.03 K/mm3 (0.00-0.031); Immature Granulocyte Percent A 0.4 % (0-0.5); Lymphocytes Absolute Auto 1.51 K/mm3 (0.9-3.2); Lymphocytes Percent Auto 19.6 % (18.3-44.2); Mean Corpuscular HGB Conc 32.2 g/dl (32-36); Mean Corpuscular Hemoglobin 30.9 pg (26-34); Mean Platelet Volume 10.4 fl (7.4-10.4); Monocytes Absolute Auto 0.6 K/mm3 (0.1-0.6); Monocytes Percent Auto 7.4 % (2.6-8.5); Neutrophils Absolute Auto 5.5 K/mm3 (1.3-6.7); Neutrophils Percent Auto 71.7 % (45.5-73.1); Platelet Count Result 206 k/mm3 (150-375); Red Blood Count 3.98 M/mm3 (4.2-5.4); Red Cell Distribution Width 13.3 % (11.5-14.5); White Blood Count 7.7 K/mm3 (4.5-10.0)
[2023-11-03 11:28] LABS: Alanine Aminotransferase 16 U/L (6-35); Albumin Level 3.7 g/dL (3.5-5.1); Alkaline Phosphatase 55 U/L (38-126); Anion Gap 2 mmol/L (8-16); Aspartate Amino Transferase 21 U/L (14-36); Bilirubin,Total 0.5 mg/dL (0.2-1.3); Blood Urea Nitrogen 16 mg/dL (7-17); Calcium 8.4 mg/dL (8.4-10.2); Carbon Dioxide 27 mmol/L (22-30); Chloride 109 mmol/L (98-107); Estimated Glomerular Filt Rate > 60; Glucose 82 mg/dL (65-110); Sodium 138 mmol/L (137-145)
[2023-11-03 13:03] VITALS: BP 110/58; PULSE 50; RESP 16; O2SAT 98
[2023-11-03] MEDS: cefTRIAXone 2 GM/NS 100 ML 2 GM/100 ML BAG IVPB (14:18)
--- NOTE | 2023-11-03 15:49 | PM.IMHP ---
H&P: HPI History of Present Illness Date/Time: 11/03/23 15:49 Chief Complaint: Right flank pain Narrative: 53-year-old female who has had stones in the past but for now for the last 3 years. In the past she has required endoscopic extraction on at least 1 prior occasion. She presents now with intermittent right flank pain radiating to her right lower quadrant. She has had no fever chills or gross hematuria. Imaging demonstrates a 10 x 6 mm right renal pelvic stone. Will admit her for hydration analgesics. We discussed therapeutic options including endoscopic approach versus ESWL. We will plan ESWL for tomorrow morning. She is aware of the risks including, not limited to, need for additional procedures, postoperative hematuria or perinephric hematoma. Review of Systems Cardiovascular: Cardiovascular: Denies chest pain, Denies lightheadedness, Denies palpitations and Denies dyspnea Respiratory: Respiratory: Denies dyspnea Gastrointestinal: Gastrointestinal: Denies diarrhea, Denies nausea and Denies vomiting Genitourinary: Genitourinary: Denies hematuria and Denies dysuria Endocrine: Endocrine: Denies palpitations PMF Past Medical History Medical History GERD (gastroesophageal reflux disease) Nephrolithiasis EVARISTO (obstructive sleep apnea) no CPAP Tobacco use Surgical History Surgical History History of right breast biopsy (02/2011) For microcalcifications. Pathology benign. Family History Family History Grandparent Family history of lung cancer Social History Social History Social History: Surrogate decision maker: Augustina Moncada, mother. Code status: Full code. Smoking status: Current some day smoker Tobacco type: cigarettes Alcohol intake: current Alcohol use details: 6/MONTH Substance use: current Substance use type: marijuana Last use: 11/21/21 Living arrangements: alone Additional living arrangements comments: Lives in [place]. Additional occupation/education comments: Works for [employer]. Spiritual care concerns: No Meds Home Medications and Allergies Home Medications Medication Instructions Recorded Confirmed Type hydrocodone 5 mg-acetaminophen 325 1 tablet PO Q6H PRN pain #8 tabs 12/04/21 12/08/21 Rx mg tablet ranitidine HCl 300 mg tablet 300 mg PO DAILY 12/04/21 12/08/21 History tamsulosin 0.4 mg capsule (Flomax) 0.4 mg PO DAILY #4 caps 12/04/21 12/08/21 Rx Allergies Allergy/AdvReac Type Severity Reaction Status Date / Time latex Allergy Intermediate Itching Verified 11/03/23 10:22 house dust Allergy Mild Sneezing Verified 11/03/23 10:22 morphine AdvReac Severe vomiting Verified 11/03/23 10:22 ENVIRONMENTAL ALLERGENS Allergy Mild Sneezing Uncoded 11/03/23 10:22 Vital Signs Vital Signs - 24 hr 11/03/23 09:01 11/03/23 13:03 Temperature 98.5 F Pulse Rate 66 50 L Respiratory Rate 12 16 Blood Pressure 145/72 H 110/58 L Pulse Oximetry 99 98 Exam Const: General: no acute distress Resp: Effort & Inspection: normal respiratory effort GI: Inspection: non-distended GI Palp: No abdominal tenderness and No Guarding due to palpation present (GI) Auscultation: normal bowel sounds H&P: Results Labs Labs: Short CBC 11/03/23 Range/Units 11:08 WBC 7.7 (4.5-10.0) K/mm3 Hgb 12.3 (12.0-15.0) g/dL Hct 38.2 (37.0-47.0) % Plt Count 206 (150-375) k/mm3 BMP 11/03/23 11:08 Sodium 138 Potassium 4.0 Chloride 109 H Carbon Dioxide 27 BUN 16 Creatinine 0.80 Glucose 82 Calcium 8.4 Liver Function 11/03/23 Range/Units 11:08 Total Bilirubin 0.5 (0.2-1.3) mg/dL AST 21 (14-36) U/L ALT 16 (6-35) U/L Alkaline Phosphatase 55 (38-126) U/L Albumin 3.7 (3.5-5.1) g/dL Urine 11/03/23 Range/Units 09:11 Urine Co
--- NOTE | 2023-11-03 15:55 | ADMGEN ---
This patient, Marie Flores, was admitted to 3 Med Surg Room 310-01. Patient/family oriented to hospital policies and general routines including ID bracelet, bed and alarms, visiting hours, pain management, procedures, bathroom and other care routines, personal items, smoking policy, room service/diet, and visiting hours. Information on how to activate the Rapid Response Team has been discussed. Patient/Family are encouraged to report perceived risks to care and to ask questions if they do not understand what they are told or what they should do.
[2023-11-03 16:00] VITALS: BP 166/53; PULSE 63; RESP 18; TEMP 36.3; O2SAT 97
[2023-11-03] MEDS: SODIUM CHLORIDE 0.9% IV 1,000 ML 125 ML IV CONT (18:32)
[2023-11-03 20:46] VITALS: BP 109/42; PULSE 51; RESP 16; TEMP 36.4; O2SAT 97
[2023-11-04] VITALS (9 sets, daily range): BP systolic 104–129; BP diastolic 59–74; PULSE 42–68; RESP 12–20; TEMP 36.1–36.7; O2SAT 94–99
--- NOTE | 2023-11-04 02:45 | PC.NURSE ---
pt c/o pain with activity, however denies the need for pain medication or other intervention at this time
[2023-11-04] MEDS: SODIUM CHLORIDE 0.9% IV 1,000 ML 125 ML IV CONT (02:46)
[2023-11-04] MEDS: HYDROmorphone HCL INJ (*CRX) 1 MG/ML SYR 0.5 MG IV PUSH ×2 (03:32→08:19)
[2023-11-04] MEDS: ONDANSETRON INJ 4 MG/2 ML VIAL IV PUSH ×2 (03:32→08:19)
--- NOTE | 2023-11-04 06:28 | WPDHPUPDATE1 ---
History and Physical Update Update Date/Time: 11/04/23 06:28 History and Physical has been reviewed, including an updated exam of the patient. There are NO changes in the patient's condition. Risks, benefits, and alternatives have been discussed and questions answered. Patient agrees to proceed with procedure.
[2023-11-04] MEDS: HYDROcodone/acetaminophen (*CRX) 5-325 MG TABLET 1 TAB PO ×2 (11:00→16:23)
--- NOTE | 2023-11-04 13:34 | ECG_ITS ---
Measurements Intervals [place] Rate: 39 P: 50 MN: 160 QRS: 74 QRSD: 97 T: 61 QT: 464 QTc: 375 Interpretive Statements SINUS BRADYCARDIA OTHERWISE NORMAL ELECTROCARDIOGRAM NO PREVIOUS ECG AVAILABLE FOR COMPARISON Electronically Signed On 11-04-2023 14:17:07 WORM PICKER by Doug Davalos M.D.
--- NOTE | 2023-11-04 13:58 | WPDANESEPPF ---
Anes - Initial Pre Proc Eval Procedure: Operation Date: 11/04/23 15:00 Proposed Procedures p Right Extracorporeal Shock Wave Lithotripsy - Julian Frausto MD Date/Time: 11/04/23 13:58 Surgeon: Julian Frausto MD Pre Op Diagnosis: right renal pelvis calculus with milf hydronephros Patient Data Age: 53 Gender: F Height: Weight: 79.83 kg Last Vital Signs Temp 36.7 C 11/04/23 13:25 Pulse 42 L 11/04/23 13:25 Resp 16 11/04/23 13:25 BP 116/59 L 11/04/23 13:25 Pulse Ox 96 11/04/23 13:25 O2 Del Method Room Air 11/04/23 13:25 Allergies Allergy/AdvReac Type Severity Reaction Status Date / Time latex Allergy Intermediate Itching Verified 11/03/23 10:22 house dust Allergy Mild Sneezing Verified 11/03/23 10:22 morphine AdvReac Severe vomiting Verified 11/03/23 10:22 ENVIRONMENTAL ALLERGENS Allergy Mild Sneezing Uncoded 11/03/23 10:22 Home Medications Medication Instructions Recorded Confirmed Type escitalopram oxalate 10 mg tablet 10 mg PO DAILY 11/03/23 11/03/23 History hydrocodone 5 mg-acetaminophen 325 1 - 2 tablet PO Q6H PRN pain #20 11/04/23 Rx mg tablet tabs Laboratory Tests 11/04/23 13:43 PT Pending INR Pending APTT Pending Patient hx anesthesia problems: none Family hx anesthesia problems: none Results Review: All pre-operative results and documents have been reviewed as part of the pre-operative evaluation. [facility] Past Medical History Medical History GERD (gastroesophageal reflux disease) Nephrolithiasis EVARISTO (obstructive sleep apnea) no CPAP Tobacco use Surgical History Surgical History History of right breast biopsy (02/2011) For microcalcifications. Pathology benign. Family History Family History Grandparent Family history of lung cancer Social History Social History Social History: Surrogate decision maker: Augustina Carrerabenjinainahernando, mother. Code status: Full code. Smoking status: Current some day smoker Alcohol intake: current Alcohol use details: 6/MONTH Substance use: former Substance use type: marijuana Last use: 11/21/21 Lack of Transportation: No Lack of Food: Never True Current Housing: I Have Housing Concerned About Future Housing: No Difficulty Paying Gas/Electric Bills: No Difficulty Paying for Meds: No Currently Unemployed: No Education: High School Diploma/GED Difficulty w/ Childcare or Family Care: No Living arrangements: alone Additional living arrangements comments: Lives in [place]. Additional occupation/education comments: Works for [email or web address]. Spiritual care concerns: No Anes - Eval Final PreProcedure Day of Procedure 11/04/23 13:58 Patient weight: overweight Heart: regular rate and rhythm Lungs: decreased breath sounds Airway: Mallampati scale class 1 Neurological: alert and oriented Last oral intake: >/= 8 hours ASA classification: III Emergent: no Anesthetic plan: proceed Anesthesia type and monitoring: general LMA and standard monitoring Results Review: All pre-operative results and documents have been reviewed as part of the pre-operative evaluation. Informed Consent: The patient's anesthetic plan and its attendant risks and benefits were discussed with the patient/family/POA. Questions were solicited and answers provided to the satisfaction of the patient/family/POA.
[2023-11-04 14:05] LABS: INR 1.1
[2023-11-04 14:06] LABS: Partial Thromboplastin Time 30.8 SECONDS (22.3-36.8)
[2023-11-04] MEDS: ceFAZolin 2 GM/D5W 50 ML 2 GM/50 ML BAG IVPB (14:25)
--- NOTE | 2023-11-04 14:34 | W.PM.PROC2 ---
Procedure Note - Detailed Date of Procedure 11/04/23 Pre-op Diagnosis Right renal stone Post-op Diagnosis Same Procedure Performed Right ESWL Surgeon Julian Frausto MD Anesthesia General Description of Procedure The patient was brought to the operative suite where she was placed in the supine position on the Dornier lithotripsy table. The focal point of the lithotripter was placed at a 10x6mm right renal pelvic calculus. A total of 2500 shocks were delivered at a power setting of 4. There appeared to be good fragmentation of the stone. The patient tolerated the procedure well and was taken to the recovery room in good condition. Urine Output 300 Drains No Pathology None sent Complications No immediate complications Condition Stable Disposition PACU
[2023-11-04] MEDS: LACTATED RINGERS 1,000 ML 30 ML IV CONT (14:59)
--- NOTE | 2023-11-08 06:10 | P.DS_ITS ---
DS: Admitting Diagnosis Discharge Date 11/04/23 Admitting Diagnosis Right renal stone DS: Discharge Diagnosis Discharge Diagnosis (1) Calculus of renal pelvis: Code(s): N20.0 - Calculus of kidney Status: Acute DS: Summary Hospital Course Hospital Course: Patient was admitted with a painful intermittently obstructing right renal calculus. Day following admission she underwent ESWL to the 1 cm right renal calculus. Throughout the admission she was afebrile and without significant hematuria. Subsequent to the procedure she was comfortable, prompting decision for discharge. Time Spent with Patient Time attestation: Total time spent providing and/or coordinating discharge services: Exam Const: General: no acute distress Resp: Effort & Inspection: normal respiratory effort GI: Inspection: non-distended GI Palp: No abdominal tenderness and No Guarding due to palpation present (GI) Auscultation: normal bowel sounds Discharge Plan Discharge Attending physician on discharge: Julian Frausto Consulting providers: Sonia Vallejo; Alexander Pérez; Raad Jones V.; Doug Davalos; Balwinder Warren Discharging Clinician: Julian Frausto Patient Disposition: Home, Self-Care Activity: other - see discharge instructions Diet: other - see discharge instructions Discharge Instructions: 1) Activity: * No driving or important decisions [id number]. * No lifting/straining >15lbs. [id number]. 2) Strain urine until one stone fragment retrieved. Bring that fragment to your follow-up visit. 3) Diet: resume normal pre-admission diet. 4) Follow-up: 2-3 weeks with KUB / call for appointment ([phone]) Patient Instructions: Antibiotic Form Stand Alone Forms: General Discharge Information Follow-up/Referrals: Julian Frausto MD [Physician] - Discharge Medications: New hydrocodone-acetaminophen 5-325 mg tablet 1 - 2 tablet PO Q6H PRN (Reason: pain) Qty: 20 0RF cephalexin 500 mg capsule 500 mg PO Q8H Qty: 9 0RF ondansetron HCl 4 mg tablet 4 mg PO Q6H PRN (Reason: nausea and vomiting) Qty: 10 0RF Continued escitalopram oxalate 10 mg tablet 10 mg PO DAILY Date of admission: 11/03/23 13:36 Primary Care Provider: Cassandra Qureshi Admitting Provider: Julian Frausto Attending physician on admission: Julian Frausto Condition: Stable
== END 2023-11-04 17:15 | disposition home or self-care (01) ==
LOC: ANHED 13:46 → ANH3MEDSUR 15:12
PROVIDERS: Emergency Medicine; Admitting Provider Urology; Emergency Provider Nurse Practitioner; PCP Nurse Practitioner Adult Health; Visit Provider Urology
PROC: (CPT 50590; principal; 2023-11-04 15:00)
DX: N13.2 Hydronephrosis with renal and ureteral calculous obstruction (principal); K21.9 Gastro-esophageal reflux disease without esophagitis; R00.1 Bradycardia, unspecified; G47.33 Obstructive sleep apnea (adult) (pediatric); F17.210 Nicotine dependence, cigarettes, uncomplicated; F10.90 Alcohol use, unspecified, uncomplicated; F12.90 Cannabis use, unspecified, uncomplicated; Z79.891 Long term (current) use of opiate analgesic; Z79.899 Other long term (current) drug therapy
CPT/HCPCS: 50590; 36415; 74018; 74176; 80053; 81001; 85025; 85610; 85730; 87086; 93005; 96361; 96365; 96375; 96376; 99285; A9270; G0378; J0690; J0696; J1100; J1170; J1885; J2250; J2405; J2704; J3010; J7030; J7120

== ENCOUNTER 2023-11-05 02:02 | Emergency (ER) | payer BC, SELFPAY ==
[2023-11-05] VITALS (24 sets, daily range): BP systolic 115–151; BP diastolic 53–82; PULSE 44–81; RESP 11–24; TEMP 36.7; O2SAT 95–99
--- NOTE | ~2023-11-05 | CT_ITS ---
EXAMINATION: CT abdomen pelvis wo con DATE: 11/05/2023 02:41 INDICATION: Flank pain. Recent lithotripsy. TECHNIQUE: Computed tomography (CT) of the abdomen and pelvis was performed without intravenous contr ast. The dose-length product was 709.75 mGy-cm. Automated exposure control and iterative reconstructi on technique were employed. COMPARISON: CT dated 11/03/2023 FINDINGS: Lung bases are unremarkable. Heart size normal. No significant pleural or pericardial effus ion. The liver, spleen, pancreas, adrenal glands and left kidney are unremarkable. There are small st ones in the distal aspect of the right ureter at the UVJ. Moderate right hydronephrosis. There is per inephric edema. There are nonobstructing right renal stones. Gallbladder is present. There is an IUD in the pelvis. Nonobstructive bowel gas pattern. The liver, spleen, pancreas, adrenal glands are unremarkable. Gallbladder wall appears thickened, non specific. Mild lumbar spondylosis. Normal appendix. No free air. No significant vascular abnormality. No lymphadenopathy. IMPRESSION: 1. Small distal right ureteral stones at the UVJ with moderate hydronephrosis. 2: Nonobstructing right nephrolithiasis. 3: Gallbladder wall thickening, nonspecific. Consider correlation with ultrasound. Reviewed, dictated and finalized at location A. ISTICAL METHODS TEACHER IMPRESSION: 1. Small distal right ureteral stones at the UVJ with moderate hydronephrosis. 2: Nonobstructing right nephrolithiasis. 3: Gallbladder wall thickening, nonspecific. Consider correlation with ultrasou nd.
--- NOTE | ~2023-11-05 | XR_ITS ---
XR abdomen/kub 1V 11/05/2023 10:46 INDICATION: Kidney stones TECHNIQUE: KUB COMPARISON: Comparison to multiple prior studies sequentially, with oldest reviewed study dated 04/2009. FINDINGS: Bowel gas pattern is normal. There is no evidence of free air, mass, organomegaly, ascites or obstruction. No abnormal calculi are seen. The bones appear intact. There is an IUD in the pelv is. IMPRESSION: 1: No acute abdominal abnormality identified. Reviewed, dictated and finalized at location A. OPERATIONS SPECIALIST
[2023-11-05] MEDS: SODIUM CHLORIDE 0.9% IV 1,000 ML 999 ML IV CONT (02:25)
[2023-11-05] MEDS: ONDANSETRON INJ 4 MG/2 ML VIAL IV PUSH ×3 (02:26→06:35)
[2023-11-05] MEDS: HYDROmorphone HCL INJ (*CRX) 1 MG/ML SYR IV PUSH ×3 (02:26→07:32)
--- NOTE | 2023-11-05 02:30 | ED.GENADULT ---
HPI - General Adult General Chief complaint: Urogenital-Female Stated complaint: flank pain Time Seen by Provider: 11/05/23 02:15 History of Present Illness HPI narrative: this is a 53-year-old female who presents emerged from with chief complaint of flank pain. Patient reports that she had kidney stones and lithotripsy today in our facility by urology and reports that she started having severe pain in the flank this evening that is not resolved with taking hydrocodone that she was given. Related Data Home Medications Medication Instructions Recorded Confirmed escitalopram oxalate 10 mg tablet 10 mg PO DAILY 11/03/23 11/03/23 Allergies Allergy/AdvReac Type Severity Reaction Status Date / Time latex Allergy Intermediate Itching Verified 11/03/23 10:22 house dust Allergy Mild Sneezing Verified 11/03/23 10:22 morphine AdvReac Severe vomiting Verified 11/03/23 10:22 ENVIRONMENTAL ALLERGENS Allergy Mild Sneezing Uncoded 11/03/23 10:22 Review of Systems Review of Systems: A 10 system review of systems was completed on the patient and is negative except for what is stated in the HPI. Nursing and ancillary documentation was reviewed. [facility] Past Medical History Medical History GERD (gastroesophageal reflux disease) Nephrolithiasis EVARISTO (obstructive sleep apnea) no CPAP Tobacco use Surgical History Surgical History History of right breast biopsy (02/2011) For microcalcifications. Pathology benign. Family History Family History Grandparent Family history of lung cancer Social History Social History Social History: Surrogate decision maker: Augustina Moncada, mother. Code status: Full code. Smoking status: Current some day smoker Alcohol intake: current Alcohol use details: 6/MONTH Substance use: former Substance use type: marijuana Last use: 11/21/21 Lack of Transportation: No Lack of Food: Never True Current Housing: I Have Housing Concerned About Future Housing: No Difficulty Paying Gas/Electric Bills: No Difficulty Paying for Meds: No Currently Unemployed: No Education: High School Diploma/GED Difficulty w/ Childcare or Family Care: No Living arrangements: alone Additional living arrangements comments: Lives in [place]. Additional occupation/education comments: Works for [employer]. Spiritual care concerns: No Exam Narrative: GENERAL: Well-appearing, well-nourished, and in Moderate acute pain distress. HEAD: Normocephalic, atraumatic. EYES: PERRLA and EOMI. ENT: Nares clear, no rhinorrhea or epistaxis. Mucous membranes moist. NECK: Supple. CHEST: Clear to auscultation. No respiratory distress. HEART: Regular rate and rhythm. No murmur heard. Normal peripheral pulses. ABDOMEN: Soft, nontender, nondistended, normal active bowel sounds. EXTREMITIES: Normal range of motion. No edema. SKIN: Warm, dry, no rash. NEURO: No focal deficits. Alert and oriented x3. PSYCH: Normal mood and affect. Course Vital Signs Vital signs: Vital Signs Temperature 36.7 C 11/05/23 02:04 Pulse Rate 81 11/05/23 02:04 Respiratory Rate 24 H 11/05/23 02:04 Blood Pressure 142/78 H 11/05/23 02:04 Pulse Oximetry 99 11/05/23 02:04 Oxygen Delivery Room Air 11/05/23 02:04 Temperature 36.7 C 11/05/23 02:04 Pulse Rate 56 L 11/05/23 06:15 Respiratory Rate 17 11/05/23 06:15 Blood Pressure 137/78 11/05/23 05:31 Pulse Oximetry 95 11/05/23 04:28 Oxygen Delivery Room Air 11/05/23 02:04 Medical Decision Making MDM Narrative Medical decision making narrative: differential diagnosis includes ureterolithiasis, UTI, laboratory studies were obtained on the patient which showed normal renal function white count was 12.0 urinalysis showed gr
[2023-11-05 02:40] LABS: Basophils Percent Auto 0.2 % (0.2-1.2); Eosinophils Percent Auto 0.1 % (0-4.4); Hematocrit 38.6 % (37.0-47.0); Hemoglobin 12.5 g/dL (12.0-15.0); Immature Granulocyte Absolute 0.04 K/mm3 (0.00-0.031); Immature Granulocyte Percent A 0.3 % (0-0.5); Lymphocytes Absolute Auto 1.27 K/mm3 (0.9-3.2); Lymphocytes Percent Auto 10.6 % (18.3-44.2); Mean Corpuscular HGB Conc 32.4 g/dl (32-36); Mean Corpuscular Hemoglobin 30.9 pg (26-34); Mean Corpuscular Volume 95.5 fl (80-100); Mean Platelet Volume 10.5 fl (7.4-10.4); Monocytes Absolute Auto 0.7 K/mm3 (0.1-0.6); Monocytes Percent Auto 5.4 % (2.6-8.5); Neutrophils Percent Auto 83.4 % (45.5-73.1); Platelet Count Result 223 k/mm3 (150-375); Red Blood Count 4.04 M/mm3 (4.2-5.4); Red Cell Distribution Width 13.2 % (11.5-14.5)
[2023-11-05 02:49] LABS: Alanine Aminotransferase 26 U/L (6-35); Alkaline Phosphatase 61 U/L (38-126); Anion Gap 7 mmol/L (8-16); Aspartate Amino Transferase 30 U/L (14-36); Bilirubin,Total 0.5 mg/dL (0.2-1.3); Blood Urea Nitrogen 17 mg/dL (7-17); Calcium 9.5 mg/dL (8.4-10.2); Carbon Dioxide 22 mmol/L (22-30); Chloride 110 mmol/L (98-107); Estimated CRCL calculation 88 ml/min; Estimated Glomerular Filt Rate > 60; Glucose 155 mg/dL (65-110); Potassium 4.5 mmol/L (3.4-5.0); Sodium 139 mmol/L (137-145)
--- NOTE | 2023-11-05 02:55 | PC.NURSE ---
Addendum entered by Mir Felix RN 11/05/23 03:01: EDP Dr. Del Valle notified Original Note: Patient called out to nursing station and told staff that her pain medication was not working
--- NOTE | 2023-11-05 03:13 | PC.NURSE ---
Patient states pain is still 10/10. Patient is currently standing bent over in pain.
[2023-11-05 03:16] LABS: Appearance Urine Turbid (Clear); Bacteria Urine 3+ /hpf; Bilirubin Urine Negative (Negative); Blood Urine 3+ (Negative); Color Urine Yellow (Yellow); Glucose Urine UA Trace mg/dL (Negative); Ketones Urine Negative (Negative); Leukocyte Esterase Ur Negative LEU/UL (Negative); Nitrate Urine Negative (Negative); Protein Urine Trace mg/dL (Negative); RBC Urine >100 /hpf (0-2); Specific Grav Ur 1.032 (1.001-1.035); Squamous Epithelial Cell Urine Many /hpf (Few); WBC Urine 21-50 /hpf; pH Urine 5.5 (5.0-9.0)
[2023-11-05] MEDS: fentaNYL CITRATE INJ (*CRX) 100 MCG/2 ML VIAL 50 MCG IV PUSH ×2 (03:20→03:49)
[2023-11-05 03:31] LABS: Add Urine Microscopic? YES
--- NOTE | 2023-11-05 03:45 | PC.NURSE ---
Patient states that her pain is still 10/10. Notified EDP Dr. Del Valle who verbally ordered 50mcg of Fentanyl IVP.
[2023-11-05 03:49] LABS: Need Manual Microscopic Reviewed
--- NOTE | 2023-11-05 04:41 | PC.NURSE ---
Patient called out to nursing station and advised her pain was 10/10. EDP Dr. Del Valle notified
[2023-11-05] MEDS: fentaNYL CITRATE INJ (*CRX) 100 MCG/2 ML VIAL IV PUSH ×3 (04:45→06:33)
--- NOTE | 2023-11-05 05:39 | PC.NURSE ---
Patient called out to ED nursing station and advised her pain was 10/[address] Del Valle notified.
[2023-11-05] MEDS: KETOROLAC 30 MG/ML VIAL (*BKC) IV PUSH (06:31)
--- NOTE | 2023-11-05 11:21 | PC.NURSE ---
assumed care of pt. previous RN states pt has passed a few stones and is totally pain free. GISEL Avalos made aware.
== END 2023-11-05 12:13 | disposition home or self-care (01) ==
LOC: ANHED 02:40 → ANHSURGERY 06:26 → ANHED 11-07 08:09
PROVIDERS: Emergency Provider Emergency Medicine; PCP Nurse Practitioner Adult Health
DX: N13.2 Hydronephrosis with renal and ureteral calculous obstruction (principal); Z98.890 Other specified postprocedural states; K21.9 Gastro-esophageal reflux disease without esophagitis; G47.33 Obstructive sleep apnea (adult) (pediatric); F17.200 Nicotine dependence, unspecified, uncomplicated
CPT/HCPCS: 36415; 74018; 74176; 80053; 81001; 81025; 82365; 85025; 87086; 88300; 96361; 96374; 96375; 96376; 99284; J1170; J1885; J2405; J3010; J7030

== ENCOUNTER 2024-01-30 06:40 | Emergency (ER) | payer BC, SELFPAY ==
[2024-01-30 06:44] VITALS: BP 139/74; PULSE 75; RESP 14; TEMP 35.9; O2SAT 99
[2024-01-30 06:49] VITALS: BP 154/59; PULSE 69; RESP 15; O2SAT 99
--- NOTE | 2024-01-30 07:54 | ED.LOWEXIN ---
HPI - Extremity Injury (Lower) General Chief Complaint: Extremity Injury, Lower Stated Complaint: R knee pain Time Seen by Provider: 01/30/24 06:59 History of Present Illness HPI Narrative: Patient is a 53-year-old female who presents ER with pain to the back of her right knee and calf. She reports she is running for exercise this morning when she felt a pop. She reports she had a similar injury 4 days ago. She has pain with bearing weight. No numbness or tingling. She did not fall or strike her head. No swelling to the area. Pain is to the lateral aspect of the knee/Calf and not reproduced by palpation. Related Data Home Medications Medication Instructions Recorded Confirmed escitalopram oxalate 10 mg tablet 10 mg PO DAILY 11/03/23 11/03/23 Allergies Allergy/AdvReac Type Severity Reaction Status Date / Time latex Allergy Intermediate Itching Verified 11/03/23 10:22 house dust Allergy Mild Sneezing Verified 11/03/23 10:22 morphine AdvReac Severe vomiting Verified 11/03/23 10:22 ENVIRONMENTAL ALLERGENS Allergy Mild Sneezing Uncoded 11/03/23 10:22 Review of Systems Constitutional: Constitutional: Reports no additional constitutional complaints Musculoskeletal: Musculoskeletal: Reports arthralgias, Denies joint swelling and Reports muscle cramps Integumentary/Breasts: Skin/Breast: Reports system reviewed and no additional complaints, except as docu Neurologic: Reports system reviewed and no additional complaints, except as documented PMFSH Past Medical History Medical History GERD (gastroesophageal reflux disease) Nephrolithiasis EVARISTO (obstructive sleep apnea) no CPAP Tobacco use Surgical History Surgical History History of right breast biopsy (02/2011) For microcalcifications. Pathology benign. Family History Family History Grandparent Family history of lung cancer Social History Social History Social History: Surrogate decision maker: Augustina Carrerabenjinainahernando, mother. Code status: Full code. Smoking status: Current some day smoker Alcohol intake: current Alcohol use details: 6/MONTH Substance use: former Substance use type: marijuana Last use: 11/21/21 Do You Feel Safe in your Home?: Yes Lack of Transportation: No Lack of Food: Never True Current Housing: I Have Housing Concerned About Future Housing: No Difficulty Paying Gas/Electric Bills: No Difficulty Paying for Meds: No Currently Unemployed: No Education: High School Diploma/GED Difficulty w/ Childcare or Family Care: No Living arrangements: alone Additional living arrangements comments: Lives in [place]. Additional occupation/education comments: Works for [employer]. Spiritual care concerns: No Exam Narrative: GENERAL: Well-appearing, well-nourished, and in no acute distress. HEAD: Normocephalic, atraumatic. ENT: Mucous membranes moist. HEART: Regular rate and rhythm. Normal peripheral pulses. EXTREMITIES: focused exam of the right lower extremity reveals discomfort with active and passive flexion at knee but not with extension. No tenderness over the joint line. Mild discomfort over the lateral aspect of the proximal cap but not to the same degree as her discomfort with extension. SKIN: Warm, dry, no rash. NEURO: Alert and oriented x3. PSYCH: Normal mood and affect. Course Course Emergency Course: Patient resting comfortably. Informed of results. Discussed conservative treatment with anti-inflammatories, weight-bearing as tolerated, and Mau wrap. Vital Signs Vital signs: Vital Signs Temperature 96.7 F L 01/30/24 06:44 Pulse Rate 75 01/30/24 06:44 Respiratory Rate 14 01/30/24 06:44 Blood Pressure 139/74 01/30/24 06:44 Pulse Oximetry 99 01/30/24 06:44 Oxygen Delivery Ro
== END 2024-01-30 09:11 | disposition home or self-care (01) ==
PROVIDERS: Emergency Provider Emergency Medicine; PCP Nurse Practitioner Adult Health
DX: S86.911A Strain of unspecified muscle(s) and tendon(s) at lower leg level, right leg, initial encounter (principal); M25.561 Pain in right knee; K21.9 Gastro-esophageal reflux disease without esophagitis; G47.33 Obstructive sleep apnea (adult) (pediatric); F17.200 Nicotine dependence, unspecified, uncomplicated; Z87.442 Personal history of urinary calculi; X50.9XXA Other and unspecified overexertion or strenuous movements or postures, initial encounter; Y93.02 Activity, running
CPT/HCPCS: 73564; 99283

== ENCOUNTER 2024-02-06 12:43 | Outpatient (CLI) | payer BC, SELFPAY ==
--- NOTE | ~2024-02-06 | MR_ITS ---
EXAMINATION: MR knee RT wo con DATE: 02/06/2024 13:19 INDICATION: S83.241A - Other tear of medial meniscus, current injury,... TECHNIQUE: Magnetic resonance imaging (MRI) of the right knee was performed without intravenous contr ast. Sequences included axial PD-weighted FS FSE, coronal PD-weighted FSE and PD-weighted FS FSE, sag ittal PD-weighted FSE, and sagittal T2-weighted FS FSE. COMPARISON: X-ray right knee 01/30/2024 FINDINGS: Medial compartment: Vertical tear at the meniscal root ligament. Tiny apical tear in the meniscal body. Moderate medial j oint space narrowing and cartilage thinning. Full-thickness cartilage signal abnormality on the weigh tbearing surface of the MFC. Mild osteophytosis. Lateral compartment: Meniscus intact. Mild osteophytosis Patellofemoral compartment: Mild osteophytosis. Focal full-thickness cartilage signal abnormality on the medial facet. Ligaments and tendons: The ACL, PCL, MCL, and LCL are intact. Remaining flexor and extensor tendons are intact. Abnormal T2 hyperintensity deep to the pes anserine tendons. Fluid: Small volume joint fluid. Osseous/other: No suspicious focal or diffuse marrow signal. IMPRESSION: Vertical tear of the meniscal root ligament of the medial meniscus. Tricompartmental osteoarthritic changes, moderate in the medial compartment. Possible pes anserine bursitis. Reviewed, dictated and finalized at location K.
== END 2024-02-06 12:44 ==
LOC: GOSHIMG 12:45
PROVIDERS: PCP Nurse Practitioner Adult Health; Visit Provider Orthopaedic Surgery
DX: S83.241A Other tear of medial meniscus, current injury, right knee, initial encounter (principal); X58.XXXA Exposure to other specified factors, initial encounter; M17.11 Unilateral primary osteoarthritis, right knee
CPT/HCPCS: 73721

== ENCOUNTER 2024-02-20 00:23 | Day surgery (SDC) | payer BC, SELFPAY ==
--- NOTE | 2024-02-10 09:35 | PC.NURSE ---
Report to the Outpatient Waiting Room, entrance under the green pavilion located off [facility], at time 1030 on date 02/20/24. Planned Procedure Time: 1230. Time changes happen often and if your time is changed the preop area will call you the afternoon before. - You and your visitor will be asked to self-screen and do not enter if you have any COVID symptoms. - A mask is optional within the hospital at this time. Patients may have clear liquids (water, carbonated beverages, clear teas, apple juice) until 3 hours prior to surgery with a maximum of 20 ounces. - No food from midnight until time of surgery Take the following medications with a SIP of water the morning of surgery: LEXAPRO, PREDNISONE DO NOT STOP ANY OF YOUR OTHER PRESCRIPTION MEDICATIONS PRIOR TO SURGERY ?EXCEPT THE FOLLOWING Medications to discontinue per physician: N/A Date to take last dose: N/A Please no make-up, nail amharic, hairspray, perfume, deodorant, or body powder the day of surgery. No jewelry (including any body piercings) or valuables the day of surgery, leave them at home. Please take a shower or bath the night before, or the morning of, surgery with an antibacterial soap. Wear comfortable, loose fitting clothing. - Jewelry must be removed prior to entering the operating room. Rings and piercings that are not removed may be cut off. - The hospital will not accept responsibility for valuables. - Please leave all valuables, including medications, at home the day of surgery. If you are going home after surgery, a licensed team cdl driver must drive you home. - NO public transportation without another adult if you receive anesthesia. - We recommend that an adult stay with you for 24 hours following discharge. - We also recommend that you do not drive, make important decision, drink alcoholic beverages, or take any drugs that were not prescribed by your health care provider for at least 24 hours after your discharge time. Follow any additional instructions given to you from your surgeon. If you or anyone in your household have experienced Covid symptoms in the past week, please notify your surgeon or the nurse liaison at the phone number below for possible testing. Telephone instructions given to PT Caryl BARBOUR and asked if any additional questions and then verbalized understanding. Patient advised to call surgeon office or pre surgery nurse liaison [phone] if any additional questions.
--- NOTE | 2024-02-16 08:26 | PM.IMHP ---
H&P: HPI History of Present Illness Date/Time: 02/16/24 08:26 Chief Complaint: Patient is catching locking and pain right knee. She has mechanical-type symptoms. She has failed conservative treatment like to consider arthroscopic intervention. She is tender medially more than laterally. Review of Systems Musculoskeletal: Musculoskeletal: Reports arthralgias, Reports joint swelling and Reports stiffness PMFSH Past Medical History Medical History GERD (gastroesophageal reflux disease) Nephrolithiasis EVARISTO (obstructive sleep apnea) no CPAP Tobacco use Surgical History Surgical History History of lithotripsy History of right breast biopsy (02/2011) For microcalcifications. Pathology benign. Family History Family History Grandparent Family history of lung cancer Other Arthritis Heart attack Social History Social History Social History: Surrogate decision maker: Augustina Moncada, mother. Code status: Full code. Smoking packs per day: 0.75 Smoking cigarettes per day: 15.0 Years smoked: 7 Smoking pack-years: 5.25 Smoking status: Current every day smoker Tobacco type: cigarettes Alcohol intake: current Alcohol use details: 1/MONTH Substance use: never Substance use type: does not use Last use: 11/21/21 Do You Feel Safe in your Home?: Yes Lack of Transportation: No Lack of Food: Never True Current Housing: I Have Housing Concerned About Future Housing: No Difficulty Paying Gas/Electric Bills: No Difficulty Paying for Meds: No Currently Unemployed: No Education: Bachelor's Degree Difficulty w/ Childcare or Family Care: No Living arrangements: alone Additional living arrangements comments: Lives in [place]. Occupation/Education: occupation Additional occupation/education comments: Works for [employer]. Spiritual care concerns: No Meds Home Medications and Allergies Home Medications Medication Instructions Recorded Confirmed Type escitalopram oxalate 10 mg tablet 10 mg PO DAILY 11/03/23 02/10/24 History prednisone 10 mg tablet 10 mg PO BID #20 tabs 02/02/24 02/10/24 Rx Allergies Allergy/AdvReac Type Severity Reaction Status Date / Time latex Allergy Intermediate Itching Verified 02/10/24 09:28 house dust Allergy Mild Sneezing Verified 02/10/24 09:28 morphine AdvReac Severe vomiting Verified 02/10/24 09:28 Exam Narrative: On exam she is tender to palpation is pain to manipulation right knee. She has catching and locking and mechanical-type symptoms. She walks with a mildly antalgic gait. Eyes: General: appearance normal, both eyes and all related structures Neck: Neck: supple Resp: Effort & Inspection: normal respiratory effort Cardio: Rate: regular rate Rhythm: regular rhythm Radiology Reports: Comments: Patient: Marie Flores : 1970 MR#: [id number] Age: 53 Loc: [facility]? ? ADM Date: 02/06/24Attending Dr: Pro Hua M.D. Ordering Physician: Pro Hua MD Date of Service: 02/06/24 Procedure(s): MR knee RT wo con Accession Number(s): [id number] cc: Pro Hua MD; Cassandra Qureshi APRN~ EXAMINATION: MR knee RT wo con DATE: 02/06/2024 13:19 INDICATION: S83.241A - Other tear of medial meniscus, current injury,... TECHNIQUE: Magnetic resonance imaging (MRI) of the right knee was performed without intravenous contrast. Sequences included axial PD-weighted FS FSE, coronal PD-weighted FSE and PD-weighted FS FSE, sagittal PD-weighted FSE, and sagittal T2-weighted FS FSE. COMPARISON: X-ray right knee 01/30/2024 FINDINGS: Medial compartment: Vertical tear at the meniscal root ligament. Tiny apical tear in the meniscal body. Moderate medial joint space narrowing and cartilage thin
[2024-02-20] VITALS (11 sets, daily range): BP systolic 106–156; BP diastolic 63–86; PULSE 45–60; RESP 12–20; TEMP 36.2–37.2; O2SAT 98–100
--- NOTE | 2024-02-20 06:54 | WPDHPUPDATE1 ---
History and Physical Update Update Date/Time: 02/20/24 06:54 History and Physical has been reviewed, including an updated exam of the patient. There are NO changes in the patient's condition. Risks, benefits, and alternatives have been discussed and questions answered. Patient agrees to proceed with procedure.
--- NOTE | 2024-02-20 08:25 | P.PNAN_ITS ---
Anes - Initial Pre Proc Eval Procedure: Operation Date: 02/20/24 12:30 Proposed Procedures p Right Knee Arthroscopy with Partial Meniscectomy - Pro Hua MD Date/Time: 02/20/24 08:25 Surgeon: Pro Hua MD Pre Op Diagnosis: right meniscal tear Patient Data Age: 53 Gender: F Height: 1.68 m Weight: 84.4 kg Allergies Allergy/AdvReac Type Severity Reaction Status Date / Time latex Allergy Intermediate Itching Verified 02/20/24 10:27 house dust Allergy Mild Sneezing Verified 02/20/24 10:27 morphine AdvReac Severe vomiting Verified 02/20/24 10:27 Home Medications Medication Instructions Recorded Confirmed Type escitalopram oxalate 10 mg tablet 10 mg PO DAILY 11/03/23 02/20/24 History Patient hx anesthesia problems: none Family hx anesthesia problems: none Results Review: All pre-operative results and documents have been reviewed as part of the pre- operative evaluation. PMFSH Past Medical History Medical History Anxiety Depression GERD (gastroesophageal reflux disease) Nephrolithiasis EVARISTO (obstructive sleep apnea) no CPAP Tobacco use Surgical History Surgical History History of lithotripsy History of right breast biopsy (02/2011) For microcalcifications. Pathology benign. Family History Family History Grandparent Family history of lung cancer Other Arthritis Heart attack Social History Social History Social History: Surrogate decision maker: Augustina Deandrebenjinainahernando, mother. Code status: Full code. Smoking packs per day: 0.75 Smoking cigarettes per day: 15.0 Years smoked: 7 Smoking pack-years: 5.25 Smoking status: Current every day smoker Tobacco type: cigarettes Alcohol intake: current Alcohol use details: 1/MONTH Substance use: never Substance use type: does not use Last use: 11/21/21 Do You Feel Safe in your Home?: Yes Lack of Transportation: No Lack of Food: Never True Current Housing: I Have Housing Concerned About Future Housing: No Difficulty Paying Gas/Electric Bills: No Difficulty Paying for Meds: No Currently Unemployed: No Education: Bachelor's Degree Difficulty w/ Childcare or Family Care: No Living arrangements: alone Additional living arrangements comments: Lives in [place]. Occupation/Education: occupation Additional occupation/education comments: Works for [employer]. Spiritual care concerns: No Anes - Eval Final PreProcedure Day of Procedure 02/20/24 08:25 Patient weight: obese Heart: regular rate and rhythm Lungs: clear to auscultation Airway: Mallampati scale class II Neurological: alert and oriented Last oral intake: >/= 8 hours ASA classification: III Emergent: no Anesthetic plan: proceed Anesthesia type and monitoring: general LMA and standard monitoring Results Review: All pre-operative results and documents have been reviewed as part of the pre- operative evaluation. Informed Consent: The patient's anesthetic plan and its attendant risks and benefits were discussed with the patient/family/POA. Questions were solicited and answers provided to the satisfaction of the patient/fa
[2024-02-20] MEDS: LACTATED RINGERS 1,000 ML 30 ML IV CONT (10:57)
[2024-02-20] MEDS: ACETAMINOPHEN 500 MG TABLET 1000 MG PO (10:57)
[2024-02-20] MEDS: KETOROLAC 15 MG/ML VIAL (*BKC) IV PUSH (10:59)
[2024-02-20] MEDS: ceFAZolin 2 GM/D5W 50 ML 2 GM/50 ML BAG IVPB (11:58)
[2024-02-20] MEDS: LIDO 1%/EPINEPHRINE 1:100,000 50 ML VIAL 10 ML INFILTRATE (12:14)
--- NOTE | 2024-02-20 12:36 | W.PM.PROC2 ---
Procedure Note - Detailed Date of Procedure 02/20/24 Pre-op Diagnosis RIGHT meniscal tear Post-op Diagnosis Same Procedure Performed Arthroscopy partial menisectomy Right Knee Surgeon Pro Hua MD Anesthesia General Description of Procedure Patient brought to operating room # 7. An anesthetic was administered. The knee was steriley prepped and draped in the usual manner. Standard portals were used. Superior medial portal was used for the outflow cannula, inferior lateral portal was used for the scope, inferior medial portal was used for the instruments. Arthroscopy was performed, the patellar femoral joint degenerative changes. The plica was debrided. The medial compartment showed a complex tear posteriorly. The lateral compartment showed fraying. The ACL was intact. Using baskets and angélica the meniscal tear was trimmed back to a stable base so the nothing further could be pulled into the joint. She had some areas of grade 3 degeneration over the tear. Any loose or delaminated fragments were gently trimmed to a stable base. At this point the instruments were withdrawn, sutures placed and patient left the operating room in satisfactory condition. Estimated Blood Loss 20 Drains No Packing No Pathology None sent Complications No immediate complications Condition Stable Disposition PACU [facility] Billing Surgery - Charge Forward: Surgery Billing (Medial Menisectomy [id number])
[2024-02-20] MEDS: fentaNYL CITRATE INJ (*CRX) 100 MCG/2 ML VIAL 25 MCG IV PUSH ×6 (13:00→13:49)
[2024-02-20] MEDS: diphenhydrAMINE HCl INJ 50 MG/ML VIAL 25 MG IV PUSH ×2 (13:26→14:00)
[2024-02-20] MEDS: LORATADINE 10 MG TABLET PO (13:53)
[2024-02-20] MEDS: oxyCODONE HCL (*CRX) 5 MG TAB IR PO (14:26)
== END 2024-02-20 15:15 | disposition home or self-care (01) ==
PROVIDERS: PCP Nurse Practitioner Adult Health; Visit Provider Orthopaedic Surgery
PROC: (CPT 29870; principal; 2024-02-20 12:30)
DX: S83.231A Complex tear of medial meniscus, current injury, right knee, initial encounter (principal); K21.9 Gastro-esophageal reflux disease without esophagitis; G47.33 Obstructive sleep apnea (adult) (pediatric); F41.9 Anxiety disorder, unspecified; F32.A Depression, unspecified; E66.9 Obesity, unspecified; Z68.30 Body mass index [BMI] 30.0-30.9, adult; F17.210 Nicotine dependence, cigarettes, uncomplicated; Z79.52 Long term (current) use of systemic steroids; Z98.890 Other specified postprocedural states; Z80.1 Family history of malignant neoplasm of trachea, bronchus and lung; Z82.49 Family history of ischemic heart disease and other diseases of the circulatory system; X58.XXXA Exposure to other specified factors, initial encounter
CPT/HCPCS: 29881; A9270; J0690; J1100; J1200; J1885; J2405; J2704; J3010; J7120

== ENCOUNTER 2025-06-08 08:49 | Outpatient (CLI) | payer BC, SELFPAY ==
--- NOTE | ~2025-06-08 | MR_ITS ---
MRI of the left knee Clinical history: Medial meniscal tear, pain Technique: Coronal proton density and proton density-weighted images, sagittal proton-density and T2 fat-sat images, and axial proton-density fat-saturated images were acquired. Findings: Anterior and posterior cruciate ligaments are intact. Medial collateral ligament and the la teral collateral ligament complex are intact. Popliteus tendon is intact. There is a radial tear at the posterior root of the medial malleolus. Lateral meniscus is intact. 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 There is patchy mild to moderate chondromalacia o f the medial femoral condyle. Extensor mechanism is intact. Small joint effusion present. No Pardo's cyst. Impression: Large radial tear at the posterior root of the medial meniscus. 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 Small joint effusion. Reviewed, dictated and finalized at [facility]. Impression: Large radial tear at the posterior root of the medial meniscus. 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 Small joint effusion.
== END 2025-06-08 08:50 | disposition home or self-care (01) ==
PROVIDERS: PCP Nurse Practitioner Adult Health; Visit Provider Orthopaedic Surgery
DX: S83.242A Other tear of medial meniscus, current injury, left knee, initial encounter (principal); X58.XXXA Exposure to other specified factors, initial encounter; M25.462 Effusion, left knee
CPT/HCPCS: 73721

== ENCOUNTER 2025-06-24 00:38 | Day surgery (SDC) | payer BC, SELFPAY ==
[2025-06-18 13:58] VITALS: BMI 32.8
--- NOTE | 2025-06-18 14:00 | PC.NURSE ---
Report to the Outpatient Waiting Room, entrance under the green pavilion located off [facility], at time _0830_ on date _[id number]_. Planned Procedure Time: _1030_.? Time changes happen often and if your time is changed the preop area will call you the afternoon before. - You and your visitor will be asked to self-screen and do not enter if you have any COVID symptoms. Please call surgeon if you need to reschedule. - A mask is optional within the hospital at this time. Patients may have clear liquids (water, carbonated beverages, clear teas, apple juice) until 3 hours prior to surgery with a maximum of 20 ounces. - No food from midnight until time of surgery and no smoking, or chewing tobacco (or any form of nicotine). No chewing gum, candy or mints. Take only the following medications with a SIP of water on the morning of surgery: ___Escitalopram____ DO NOT STOP ANY OF YOUR OTHER PRESCRIPTION MEDICATIONS PRIOR TO SURGERY EXCEPT THE FOLLOWING Hold all vitamins and supplements for 3 days per anesthesiologist. Medications to discontinue per physician Please check with Dr Hua's office if need to stop Celebrex. Date to take last dose Please no make-up, nail indonesian, hairspray, perfume, deodorant, or body powder the day of surgery.? No jewelry (including any body piercings) or valuables the day of surgery, leave them at home.? Please take a shower or bath the night before, or the morning of, surgery with an antibacterial soap.? Wear comfortable, loose fitting clothing.? - Jewelry must be removed prior to entering the operating room.? Rings and piercings that are not removed may be cut off. - The hospital will not accept responsibility for valuables.? - Please leave all valuables, including medications, at home the day of surgery. If you are going home after surgery, a licensed sales warehouse driver must drive you home.? - NO public transportation without another adult if you receive anesthesia. - We recommend that an adult stay with you for 24 hours following discharge. - We also recommend that you do not drive, make important decision, drink alcoholic beverages, or take any drugs that were not prescribed by your health care provider for at least 24 hours after your discharge time. Follow any additional instructions given to you from your surgeon. Telephone instructions given to ___Ankitie__and asked if any additional questions and then verbalized understanding. Patient advised to call surgeon office or pre surgery nurse liaison [phone] if any additional questions.
--- NOTE | 2025-06-21 20:19 | PM.IMHP ---
H&P: HPI History of Present Illness Date/Time: 06/21/25 20:19 Chief Complaint: Patient is catching locking and pain of the left knee. She has mechanical-type symptoms. She has failed conservative treatment like to consider arthroscopic intervention. She has an MRI scan that demonstrates a meniscal tear. Review of Systems Musculoskeletal: Musculoskeletal: Reports arthralgias, Reports joint swelling and Reports stiffness PMFSH Past Medical History Medical History Depression Anxiety GERD (gastroesophageal reflux disease) EVARISTO (obstructive sleep apnea) no CPAP Tobacco use Nephrolithiasis Surgical History Surgical History History of lithotripsy History of right breast biopsy (02/2011) For microcalcifications. Pathology benign. Family History Family History Grandparent Family history of lung cancer Other Arthritis Heart attack Social History Social History Social History: Surrogate decision maker: Augustina Deandrebenjiharshil, mother. Code status: Full code. Smoking packs per day: 0.75 Smoking cigarettes per day: 15.0 Years smoked: 4 Smoking pack-years: 3.00 Smoking status: Current every day smoker Tobacco type: cigarettes Alcohol intake: current Alcohol use details: 1/MONTH Substance use: never Substance use type: does not use Last use: 11/21/21 Do You Feel Safe in your Home?: Yes Lack of Transportation: No Lack of Food: Never True Current Housing: I Have Housing Concerned About Future Housing: No Difficulty Paying Gas/Electric Bills: No Difficulty Paying for Meds: No Currently Unemployed: No Education: Bachelor's Degree Difficulty w/ Childcare or Family Care: No Living arrangements: alone Additional living arrangements comments: Lives in [place]. Occupation/Education: occupation Additional occupation/education comments: Works for [employer]. Spiritual care concerns: No Meds Home Medications and Allergies Home Medications ?Medication ?Instructions ?Recorded ?Confirmed ?Type escitalopram oxalate 10 mg tablet 10 mg PO DAILY 11/03/23 06/18/25 History celecoxib 200 mg capsule (Celebrex) 200 mg PO DAILY #30 caps 05/28/25 06/18/25 Rx Allergies Allergy/AdvReac Type Severity Reaction Status Date / Time latex Allergy Intermediate Itching Verified 06/18/25 13:51 house dust Allergy Mild Sneezing Verified 06/18/25 13:51 morphine AdvReac Severe vomiting Verified 06/18/25 13:51 Exam Narrative: On exam she has catching locking and pain in the right left knee. She has mechanical-type symptoms. Neurologically she is intact. Eyes: General: appearance normal, both eyes and all related structures Neck: Neck: supple Resp: Effort & Inspection: normal respiratory effort Cardio: Rate: regular rate Rhythm: regular rhythm Radiology Reports: Comments: Magnetic Resonance Report Signed Patient: Marie Flores MRI of the left knee Clinical history: Medial meniscal tear, pain Technique: Coronal proton density and proton density-weighted images, sagittal proton-density and T2 fat-sat images, and axial proton-density fat-saturated images were acquired. Findings: Anterior and posterior cruciate ligaments are intact. Medial collateral ligament and the lateral collateral ligament complex are intact. Popliteus tendon is intact. There is a radial tear at the posterior root of the medial malleolus. Lateral meniscus is intact. 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 There is patchy mild to moderate chondromalacia of the medial femoral condyle. Extensor mechanism is intact. Small joint effusion present. No Pardo's cyst. Impression: Large radial tear at the posterior root of the medial meniscus. 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 Small joint effusion. Reviewed, dictated and finalized at location . Abdomen X-Ray 11/05/23 Knee X-Ray 05/23/25 Knee MRI 06/08/25 Orthopedics Result Report 05/23/25 Assessment and Plan Assessment and plan (1) Acute medial meniscus tear of left knee: Code(s): S83.242A - Other tear of medial meniscus, current injury, left knee, initial encounter Status: Acute Assessment and Plan: Patient has meniscal tear left. She has catching locking pain mechanical-type symptoms. She has failed conservative treatment like to consider arthroscopic intervention. I discussed the risks, benefits, limitations, alternatives with the patient in detail. Will proceed per her request discussed.
[2025-06-24] VITALS (10 sets, daily range): BP systolic 116–158; BP diastolic 62–85; PULSE 47–67; RESP 12–22; TEMP 36.6–36.7; O2SAT 92–100
[2025-06-24] MEDS: SCOPOLAMINE 1 MG PATCH 1 PATCH TRANSDERM (09:00)
--- NOTE | 2025-06-24 09:03 | WPDHPUPDATE1 ---
History and Physical Update Update Date/Time: 06/24/25 09:03 History and Physical has been reviewed, including an updated exam of the patient. There are NO changes in the patient's condition. Risks, benefits, and alternatives have been discussed and questions answered. Patient agrees to proceed with procedure. Planned procedures are arthroscopy, partial meniscectomy, proceed as indicated.
--- NOTE | 2025-06-24 09:06 | P.PNAN_ITS ---
Anes - Initial Pre Proc Eval Procedure: Operation Date: 06/24/25 10:30 Proposed Procedures p Left Knee Arthroscopy, Partial Meniscectomy, Proceed As Indicated - Pro Hua MD Date/Time: 06/24/25 09:06 Surgeon: Pro Hua MD Pre Op Diagnosis: left medial meniscal tear Patient Data Age: 55 Gender: F Height: 1.68 m Weight: 92.3 kg Allergies Allergy/AdvReac Type Severity Reaction Status Date / Time latex Allergy Intermediate Itching Verified 06/18/25 13:51 house dust Allergy Mild Sneezing Verified 06/18/25 13:51 morphine AdvReac Severe vomiting Verified 06/18/25 13:51 Home Medications ?Medication ?Instructions ?Recorded ?Confirmed ?Type escitalopram oxalate 10 mg tablet 10 mg PO DAILY 11/03/23 06/18/25 History celecoxib 200 mg capsule (Celebrex) 200 mg PO DAILY #30 caps 05/28/25 06/18/25 Rx hydrocodone 5 mg-acetaminophen 325 1 tablet PO Q4H PRN pain #30 tabs 06/24/25 Rx mg tablet Patient hx anesthesia problems: none Family hx anesthesia problems: none Results Review: All pre-operative results and documents have been reviewed as part of the pre- operative evaluation. [facility] Past Medical History Medical History Depression Anxiety GERD (gastroesophageal reflux disease) EVARISTO (obstructive sleep apnea) no CPAP Tobacco use Nephrolithiasis Surgical History Surgical History History of lithotripsy History of right breast biopsy (02/2011) For microcalcifications. Pathology benign. Family History Family History Grandparent Family history of lung cancer Other Arthritis Heart attack Social History Social History Social History: Surrogate decision maker: Augustina Deandrebenjiharshil, mother. Code status: Full code. Smoking packs per day: 0.75 Smoking cigarettes per day: 15.0 Years smoked: 7 Smoking pack-years: 5.25 Smoking status: Current every day smoker Tobacco type: cigarettes Alcohol intake: current Alcohol use details: 1/MONTH Substance use: never Substance use type: does not use Last use: 11/21/21 Do You Feel Safe in your Home?: Yes Lack of Transportation: No Lack of Food: Never True Current Housing: I Have Housing Concerned About Future Housing: No Difficulty Paying Gas/Electric Bills: No Difficulty Paying for Meds: No Currently Unemployed: No Education: Bachelor's Degree Difficulty w/ Childcare or Family Care: No Living arrangements: alone Additional living arrangements comments: Lives in [place]. Occupation/Education: occupation Additional occupation/education comments: Works for [employer]. Spiritual care concerns: No Anes - Eval Final PreProcedure Day of Procedure 06/24/25 09:06 Patient weight: obese Heart: regular rate and rhythm Lungs: decreased breath sounds Airway: Mallampati scale class II Neurological: alert and oriented Last oral intake: >/= 8 hours ASA classification: III Emergent: no Anesthetic plan: proceed Anesthesia type and monitoring: general LMA and standard monitoring Results Review: All pre-operative results and documents have been reviewed as part of the pre- operative evaluation. Informed Consent: The patient's anesthetic plan and its attendant risks and benefits were discussed with the patient/family/POA. Questions were solicited and answers provided to the satisfaction of the patient/family/POA.
[2025-06-24] MEDS: KETOROLAC 15 MG/ML VIAL (*BKC) IV PUSH (09:22)
[2025-06-24] MEDS: ceFAZolin 2 GM in SODIUM CHLORIDE 0.9% IV 50 ML 100 ML IVPB (09:25)
[2025-06-24 09:34] LABS: BEDSIDEPREGUCG Negative (Negative)
[2025-06-24] MEDS: LIDO 1%/EPINEPHRINE 1:100,000 20 ML VIAL 10 ML INFILTRATE (09:49)
--- NOTE | 2025-06-24 09:59 | P.OP_ITS ---
Procedure Note - Detailed Date of Procedure 06/24/25 Pre-op Diagnosis Left medial meniscal tear Post-op Diagnosis Same Procedure Performed LEFT knee arthroscopy with partial meniscectomy Surgeon Pro Hua MD Anesthesia General Indications Pain, Locking and Catching Description of Procedure Patient brought to operating room # 7. An anesthetic was administered. The knee was sterilely prepped and draped in the usual manner. Standard portals were used. Superior medial portal was used for the outflow cannula, inferior lateral portal was used for the scope, inferior medial portal was used for the instruments. Arthroscopy was performed, the patellar femoral joint degenerative changes. The medial compartment showed a complex tear. She had grade 3 and 4 changes of the medial femoral condyle. The lateral compartment showed fraying. The ACL was intact. Using baskets and angélica the meniscal tear was trimmed back to a stable base so the nothing further could be pulled into the joint. A July pick was used to broach the cortex hopefully induce bleeding and cartilaginous on growth. Any loose or delaminated fragments were gently trimmed to a stable base. At this point the instruments were withdrawn, sutures placed and patient left the operating room in satisfactory condition. Estimated Blood Loss 20 Drains No Packing No Pathology None sent Complications No immediate complications Condition Stable Disposition PACU [facility] Billing Surgery - Charge Forward: Surgery Billing ([id number] [facility])
[2025-06-24] MEDS: LACTATED RINGERS 1,000 ML 30 ML IV CONT ×2 (10:05→10:43)
[2025-06-24] MEDS: fentaNYL CITRATE INJ (*CRX) 100 MCG/2 ML VIAL 25 MCG IV PUSH ×4 (10:24→10:43)
[2025-06-24] MEDS: oxyCODONE HCL (*CRX) 5 MG TAB IR PO (11:40)
== END 2025-06-24 12:05 | disposition home or self-care (01) ==
PROVIDERS: PCP Nurse Practitioner Adult Health; Visit Provider Orthopaedic Surgery
PROC: (CPT 29870; principal; 2025-06-24 10:30)
DX: S83.232A Complex tear of medial meniscus, current injury, left knee, initial encounter (principal); M94.262 Chondromalacia, left knee; M25.462 Effusion, left knee; K21.9 Gastro-esophageal reflux disease without esophagitis; G47.33 Obstructive sleep apnea (adult) (pediatric); F32.A Depression, unspecified; F41.9 Anxiety disorder, unspecified; F17.210 Nicotine dependence, cigarettes, uncomplicated; X58.XXXA Exposure to other specified factors, initial encounter; E66.9 Obesity, unspecified; Z68.32 Body mass index [BMI] 32.0-32.9, adult; Z79.1 Long term (current) use of non-steroidal anti-inflammatories (NSAID); Z79.891 Long term (current) use of opiate analgesic; Z98.890 Other specified postprocedural states; Z80.1 Family history of malignant neoplasm of trachea, bronchus and lung; Z82.49 Family history of ischemic heart disease and other diseases of the circulatory system
CPT/HCPCS: 29881; J0690; A9270; J1100; J1885; J2003; J2004; J2250; J2405; J2704; J3010; J7120